=== PATIENT | male | born 1985 | race Two or more races ===

== ENCOUNTER 2019-09-23 21:01 | Inpatient (IN) | payer OTHER ==
[2019-09-23 21:10] VITALS: BMI 33.5
[2019-09-23 21:43] LABS: ALBUMIN 4.5 g/dl (3.4-5.0); AMYLASE 44 U/L (25-115); ANION GAP 11 MMOL/L (8-16); CALCIUM 8.4 mg/dl (8.5-10); CHLORIDE 95 mmol/L (98-107); CO2 19 mmol/L (21-32); CREATININE 0.5 mg/dl (0.55-1.3); GLUCOSE,RANDOM 298 mg/dl (74-106); POTASSIUM 3.7 mmol/L (3.5-5.1); SODIUM 125 mmol/L (136-145); TOT PROT 5.5 g/dl (6.4-8.2)
[2019-09-23 21:46] LABS: HEMATOCRIT 37.7 % (35.4-49); MCH 30.7 pg (25.7-33.7); MCHC 34.6 g/dl (32.0-35.9); MEAN CELL VOLUME 88.6 fl (80-96)
[2019-09-23 21:57] LABS: ALK PHOS 121 U/L (45-117)
[2019-09-23 22:01] LABS: RBC 4.84 M/mm3 (4.00-5.60)
[2019-09-23 22:02] LABS: PLATELET COUNT 268 K/MM3 (134-434)
[2019-09-23 22:06] LABS: WHITE BLOOD COUNT 15.3 K/mm3 (4.0-10.8)
[2019-09-23 22:29] LABS: LIPASE 200 U/L (73-393); PLATELET ESTIMATE ADEQUATE
[2019-09-23] MEDS ORDERED: ACETAMINOPHEN INJECTION 100 ML IVPB ONE (23:37)
--- NOTE | 2019-09-23 23:43 | PDOC ---
History of Present Illness - General Chief Complaint: Pain, Acute Stated Complaint: ABD PAIN RADIATING TO BACK Time Seen by Provider: 09/23/19 21:10 - History of Present Illness Initial Comments: This 33-year-old man with no previous medical history presents with a 1 day history of epigastric pain radiating to his back. Patient had mild pain when he awakened this morning, pain worsened despite taking [id number] meds (Im odium and antacid). He attempted to eat chicken soup but became nauseated. He did not vomit and had no further nausea. No previous history of this type of pain; patient denies peptic ulcer disease, gastritis, biliary tract abnormalities or pancreatic issues. He denies constipation/diarrhea/fever or chills. He states that he can drink 2 to 3 cans of beer per night but not every night. He last drank a large quantity of beer 5 days ago when he had attended a [employer]. On no daily medications No allergies Smoked for 2 years but quit 3 months ago; alcohol history as noted above, no history of other recreational drug use Patient works in [employer] business Past History - Medical History Allergies/Adverse Reactions: Allergies Allergy/AdvReac Type Severity Reaction Status Date / Time No Known Allergies Allergy Unverified 09/23/19 21:04 Home Medications: Ambulatory Orders NK [No Known Home Medication] 09/23/19 COPD: No - Psycho-Social/Smoking History Smoking History: Never smoked Review of Systems - Review of Systems Able to Perform ROS?: Yes Comments:: 12 point review of systems is negative except for what is noted in the history of present illness *Physical Exam - Vital Signs Last Vital Signs Temp Pulse Resp BP Pulse Ox 100.4 F H 118 H 18 141/82 97 09/23/19 21:06 09/23/19 21:06 09/23/19 21:06 09/23/19 21:06 09/23/19 21:06 - Physical Exam GENERAL: Adult male, alert and oriented x3, in mild distress secondary to epigastric pain HEAD: Normal with no signs of trauma. EYES: PERRLA, EOMI, sclera anicteric, conjunctiva erythematous. ENT: Ears normal, nares patent, oropharynx clear without exudates. Dry mucous membranes. NECK: Normal range of motion, supple without lymphadenopathy, JVD, or masses. LUNGS: Breath sounds equal, clear to auscultation bilaterally. No wheezes, and no crackles. HEART:Regular rate and rhythm, normal S1 and S2 without murmur, rub or gallop. ABDOMEN:.normal bowel sounds No guarding,tenderness or rebound.No masses No distention. EXTREMITIES: Normal range of motion, no edema. No clubbing or cyanosis. No erythema, or tenderness. NEUROLOGICAL: Cranial nerves II through XII grossly intact. Normal speech. No focal neurological deficits. MUSCULOSKELETAL: Back non-tender to palpation, no CVA tenderness SKIN: Warm, Dry, normal turgor, no rashes or lesions noted. ED Treatment Course - LABORATORY CBC & Chemistry Diagram: 09/23/19 21:15 09/23/19 23:40 - ADDITIONAL ORDERS Additional order review: Laboratory Results 09/23/19 09/23/19 09/23/19 22:40 21:15 21:15 Sodium 125 L Potassium 3.7 Chloride 95 L Carbon Dioxide 19 L Anion Gap 11 BUN 12.0 Creatinine 0.5 L Est GFR (CKD-EPI)AfAm 163.87 Est GFR (CKD-EPI)NonAf 141.39 Random Glucose 298 H Lactic Acid 2.5 H* Calcium 8.4 L Total Bilirubin No Result Required. AST No Result Required. ALT No Result Required. Alkaline Phosphatase 121 H Total Protein 5.5 L Albumin 4.5 Total Amylase 44 Lipase 200 Urine Color Yellow Urine Appearance Clear Urine pH 5.5 Urine Protein 2+ H Urine Glucose (UA) 2+ Urine Ketones 4+ H Urine Blood Trace-lysed Urine Nitrite Negative Urine Bilirubin Negative Urine Urobilinogen 0.2 Ur Leukocyte Esterase Negative Urine RBC 2-5 Urine WBC 0-2 Urine Bacteria Few 09/23/19 21:15 RBC 4.84 MCV 88.6 MCHC 34.6 RDW 12.0 MPV 8.0 Neutrophils % No Result Required. Lymphocytes % No Result Required. - RADIOLOGY Radiology Studies Ordered: Category Date Time Status ABDOMEN & PELVIS CT W/O CONTR [CT] Stat CT Scan 09/23/19 21:11 Completed CHEST X-RAY PORTABLE* [RAD] Stat Radiology 09/23/19 22:23 Taken ED Progress Note - Progress Note Progress Note: This otherwise healthy 33-year-old man with a history of moderate ethanol intake but no significant past medical history presents with epigastric pain radiating to the back for 1 day and mild intermittent nausea. No other associated symptoms. Exam as noted above. Because of the patient's history of alcohol use and pain pattern, acute pancrea titis versus acute gastritis/peptic ulcer disease is main differential diagnosis. CBC/chemistry profile/lipase sent and IV fluids started (2 L normal saline administered over the first 90 minutes of patient's ER stay) Noncontrast CT of the abdomen/pelvis obtained: Interpretation by Dr. Whiteside of the radiology staffmild inflammatory changes about a slightly edematous head of the pancreas consistent with mild acute pancreatitis. No peripancreatic fluid collections suspicious for pseudocyst or abscess are identified. There is also hepatomegaly and diffuse fatty infiltration of the liver noted. Laboratory evaluation notable for white blood cell count of 15,300; sodium was 125 (corrected to 129), carbon dioxide 19 with anion gap of 11 BUN was 12 with creatinine of 0.5 random glucose was 298. Lipase was 200. Lactic acid mildly elevated at 2.5 INR could not be performed in our lab because of lipemic serum; specimen was sent to [facility] lab but could not also not be completed because of apparent high serum lipids. Patient denies previous known hyperlipidemia. Temperature on presentation was 100.4 F (orally); repeat reading at 11:30 PM: 102.6 F. Acetaminophen 1 g IV given Patient received another liter of normal saline IV and repeat lactic acid/basic chemistry was drawn at 11:40 PM Patient was asked if either he or family member diagnosed as a diabetic: He was told that he had "slightly" elevated glucose levels in the past but has not been told he is diabetic. No family history of diabetes Twelve-lead electrocardiogram performed: Normal sinus rhythm at 85 bpm; there is sinus arrhythmia but no other cardiac arrhythmia. No acute ST or T wave abnormality seen . Portable chest x-ray performed: Preliminary interpretationborderline cardiomegaly. No infiltrates, effusions, masses 09/24/19 01:39 Repeat lactic acid 1.5 Repeat basic chemistry reveals elevation of sodium to 133; potassium 3.9, carbon dioxide 25. Glucose also has increased to 345 Laboratory made comment that serum is markedly lipemic and results may be unreliable Medical Decision Making - Medical Decision Making Case discussed with VICENTE Cruz of [facility] service. The patient will be admitted to Dr. Garcia's service, at [facility] (there is no gastroenterology coverage at [facility] on weekends) Alcohol level added: Less than 3 mg/dl Covid-19 testing performed 09/24/19 04:02 POC fingerstick glucose at 3:21 was 204 09/24/19 04:11 Patient transported by ambulance without complaints and in stable condition to [facility]. Discharge - Discharge Information Problems reviewed: Yes Clinical Impression/Diagnosis: Acute pancreatitis Qualifiers: Pancreatitis type: other Acute pancreatitis complication: no infection or necrosis Qualified Code(s): K85.80 - Other acute pancreatitis without necrosis or infection Condition: Guarded - Admission Yes - Follow up/Referral - Patient Discharge Instructions - Post Discharge Activity
[2019-09-23] MEDS ORDERED: ACETAMINOPHEN 1000 MG/100 ML VIAL (NON FORMULARY) IVPB ONE (23:44)
[2019-09-24 00:52] LABS: CREATININE 0.8 mg/dL (0.55-1.3); POTASSIUM 3.9 mmol/L (3.5-5.1)
[2019-09-24] MEDS ORDERED: INSULIN REGULAR HUMAN 100 UNITS/ML *VIAL IVPUSH ONE (02:11)
[2019-09-24] MEDS ORDERED: INSULIN REGULAR HUMAN 100 UNITS/ML *VIAL ONE (02:16)
--- NOTE | 2019-09-24 04:36 | HP ---
CHIEF COMPLAINT: Epigastric Pain, Vomiting PCP: HISTORY OF PRESENT ILLNESS: This is a 33 y/o male with no PMHx. Who presents to the ED with epigastric pain radiating to his lumbar region with NBNB emesis x 1 day. Patient reports mild pain earlier in the morning in which he took Immodium and Antacids without r elief. Patient reports not being able to tolerate anything PO. Patient denies similar episodes in the past. Patient reports drinking 2-3 beers moderately during the week. He reports drinking "a large amount of beer" 5 days ago at a family [employer]. Patient denies fever, chills, cough, SOB, dizziness, CACERES, CP, palpitations, diarrhea, constipation, hematochezia, melena, hematuria, dysuria. Patient denies sick contacts or recent travel. ER course was notable for: (1) CTAP- mild pancreatitis. No peripancreatic fluid collections suspicious for pseudocyst or abscess (2) Sepsis Criteria Met- T 102.6, P 118, WBC 15.3, Lactic Acid 2.1 (3) Recent Travel: None PAST MEDICAL HISTORY: None PAST SURGICAL HISTORY: None Social History: Smoking: Former, quit 3 months ago Alcohol: Beer 2-3 night/week, last drink 5 days ago Drugs: Denies Lives with his Brother and Sister in Law, employed as a Veterinarian Allergies No Known Allergies Allergy (Unverified 09/23/19 21:04) HOME MEDICATIONS: Home Medications Medication Instructions Recorded NK [No Known Home Medication] 09/23/19 REVIEW OF SYSTEMS CONSTITUTIONAL: loss of appetite Absent: fever, chills, diaphoresis, generalized weakness, malaise, weight change HEENT: Absent: rhinorrhea, nasal congestion, throat pain, throat swelling, difficulty swallowing, mouth swelling, ear pain, eye pain, visual changes CARDIOVASCULAR: Absent: chest pain, syncope, palpitations, irregular heart rate, lightheadedness, peripheral edema RESPIRATORY: Absent: cough, shortness of breath, dyspnea with exertion, orthopnea, wheezing, stridor, hemoptysis GASTROINTESTINAL: abdominal pain, nausea, vomiting Absent: abdominal distension, diarrhea, constipation, melena, hematochezia GENITOURINARY: Absent: dysuria, frequency, urgency, hesitancy, hematuria, flank pain, genital pain MUSCULOSKELETAL: Absent: myalgia, arthralgia, joint swelling, back pain, neck pain SKIN: Absent: rash, itching, pallor HEMATOLOGIC/IMMUNOLOGIC: Absent: easy bleeding, easy bruising, lymphadenopathy, frequent infections ENDOCRINE: Absent: unexplained weight gain, unexplained weight loss, heat intolerance, cold intolerance NEUROLOGIC: Absent: headache, focal weakness or paresthesias, dizziness, unsteady gait, seizure, mental status changes, bladder or bowel incontinence PSYCHIATRIC: Absent: anxiety, depression, suicidal or homicidal ideation, hallucinations. PHYSICAL EXAMINATION Vital Signs - 24 hr 09/23/19 09/23/19 09/24/19 21:06 23:30 02:20 Temperature 100.4 F H 102.6 F H 99.3 F Pulse Rate 118 H Pulse Rate [ 87 Radial] Respiratory 18 16 Rate Blood Pressure 141/82 Blood Pressure 137/87 [Arm] O2 Sat by Pulse 97 98 Oximetry (%) GENERAL: Awake, alert, and fully oriented, in mild abdominal distress. HEAD: Normal with no signs of trauma. EYES: Pupils equal, round and reactive to light, extraocular movements intact, sclera anicteric, conjunctiva clear. No lid lag. EARS, NOSE, THROAT: Ears normal, nares patent, oropharynx clear without exudates . Dry mucous membranes. NECK: Normal range of motion, supple without lymphadenopathy, JVD, or masses. LUNGS: Breath sounds equal, clear to auscultation bilaterally. No wheezes, and no crackles. No accessory muscle use. HEART: Regular rate and rhythm, normal S1 and S2 without murmur, rub or gallop. ABDOMEN: Epigastric tenderness, hypoactive bowel sounds. Soft, not distended, no guarding, no rebound, no masses. No hepatomegaly or splenomegaly. MUSCULOSKELETAL: Normal range of motion at all joints. No bony deformities or tenderness. No CVA tenderness. UPPER EXTREMITIES: 2+ pulses, warm, well-perfused. No cyanosis. No clubbing. No peripheral edema. LOWER EXTREMITIES: 2+ pulses, warm, well-perfused. No calf tenderness. No peripheral edema. NEUROLOGICAL: Cranial nerves II-XII intact. Normal speech. Gait not observed. PSYCHIATRIC: Cooperative. Good eye contact. Appropriate mood and affect. SKIN: Warm, dry, normal turgor, no rashes or lesions noted, normal capillary refill. Laboratory Results - last 24 hr 09/23/19 09/23/19 09/23/19 21:15 21:15 21:15 WBC 15.3 H RBC 4.84 Hgb 13.0 Hct 37.7 MCV 88.6 MCH 30.7 MCHC 34.6 RDW 12.0 Plt Count 268 MPV 8.0 Absolute Neuts (auto) 2.8 Neutrophils % No Result Required. Neutrophils % (Manual) 76.0 Lymphocytes % No Result Required. Lymphocytes % (Manual) 20.0 Monocytes % (Manual) 2 L Eosinophils % (Manual) 2.0 Platelet Estimate Adequate Sodium 125 L Potassium 3.7 Chloride 95 L Carbon Dioxide 19 L Anion Gap 11 BUN 12.0 Creatinine 0.5 L Est GFR (CKD-EPI)AfAm 163.87 Est GFR (CKD-EPI)NonAf 141.39 POC Glucometer Random Glucose 298 H Lactic Acid 2.5 H* Calcium 8.4 L Total Bilirubin No Result Required. AST No Result Required. ALT No Result Required. Alkaline Phosphatase 121 H Total Protein 5.5 L Albumin 4.5 Total Amylase 44 Lipase 200 Urine Color Urine Appearance Urine pH Urine Protein Urine Glucose (UA) Urine Ketones Urine Blood Urine Nitrite Urine Bilirubin Urine Urobilinogen Ur Leukocyte Esterase Urine RBC Urine WBC Urine Bacteria Alcohol, Quantitative 09/23/19 09/23/19 09/23/19 22:40 23:40 23:40 WBC RBC Hgb Hct MCV MCH MCHC RDW Plt Count MPV Absolute Neuts (auto) Neutrophils % Neutrophils % (Manual) Lymphocytes % Lymphocytes % (Manual) Monocytes % (Manual) Eosinophils % (Manual) Platelet Estimate Sodium 133 L Potassium 3.9 Chloride 100 Carbon Dioxide 25 Anion Gap 8 BUN 9.0 Creatinine 0.8 Est GFR (CKD-EPI)AfAm 135.08 Est GFR (CKD-EPI)NonAf 116.55 POC Glucometer Random Glucose 345 H Lactic Acid 1.5 Calcium Total Bilirubin AST ALT Alkaline Phosphatase Total Protein Albumin Total Amylase Lipase Urine Color Yellow Urine Appearance Clear Urine pH 5.5 Urine Protein 2+ H Urine Glucose (UA) 2+ Urine Ketones 4+ H Urine Blood Trace-lysed Urine Nitrite Negative Urine Bilirubin Negative Urine Urobilinogen 0.2 Ur Leukocyte Esterase Negative Urine RBC 2-5 Urine WBC 0-2 Urine Bacteria Few Alcohol, Quantitative 09/24/19 09/24/19 00:00 03:21 WBC RBC Hgb Hct MCV MCH MCHC RDW Plt Count MPV Absolute Neuts (auto) Neutrophils % Neutrophils % (Manual) Lymphocytes % Lymphocytes % (Manual) Monocytes % (Manual) Eosinophils % (Manual) Platelet Estimate Sodium Potassium Chloride Carbon Dioxide Anion Gap BUN Creatinine Est GFR (CKD-EPI)AfAm Est GFR (CKD-EPI)NonAf POC Glucometer 204 Random Glucose Lactic Acid Calcium Total Bilirubin AST ALT Alkaline Phosphatase Total Protein Albumin Total Amylase Lipase Urine Color Urine Appearance Urine pH Urine Protein Urine Glucose (UA) Urine Ketones Urine Blood Urine Nitrite Urine Bilirubin Urine Urobilinogen Ur Leukocyte Esterase Urine RBC Urine WBC Urine Bacteria Alcohol, Quantitative < 3 ASSESSMENT/PLAN: This is a 33 y/o male with no PMHx. Admitted for Acute Pancreatitis, Sepsis for further evaluation of their emergent condition. Plan: See Problem List FEN LR@150ml/hr Replete lytes prn NPO DVT ppx OOB SCDs Dispo: Requires Inpatient Care Family Medical History Family History: Unremarkable Problem List - Problem (1) Sepsis Assessment/Plan: Likely secondary to Acute Pancreatitis Sepsis Criteria Met: T 102.6, P 118, Lactic Acid 2.1, WBC 15.3 Blood Cultures-pending Urine Culture-pending Repeat Lactic Acid~ 1.5, post fluid resuscitation Will treat empirically with Ceftriaxone, Levofloxacin Continue IVF Appreciate GI consult Appreciate ID consult Monitor CBC, CMP Maintain MAP >65 Monitor vitals Code(s): A41.9 - SEPSIS, UNSPECIFIED ORGANISM (2) Acute pancreatitis Assessment/Plan: CTAP image, report- mild inflammatory changes about slightly edematous head of the pancreas consistent with mild acute pancreatitis. No peripancreatic fluid collections suspicious for pseudocyst or abscess are identified. There is hepatomegaly and diffuse fatty infiltration of the liver Appreciate GI Consult Continue IVF NPO Offirmev prn Continue Ceftriaxone, Levofloxacin empirically Monitor CBC, CMP Monitor vitals Alcohol Cessation discussed Code(s): K85.90 - ACUTE PANCREATITIS WITHOUT NECROSIS OR INFECTION, UNSP Qualifiers: Pancreatitis type: other Acute pancreatitis complication: no infection or necrosis Qualified Code(s): K85.80 - Other acute pancreatitis without necrosis or infection (3) Suspected 2019-nCoV infection Assessment/Plan: SMART-QUALITY AUDITOR 0, low risk COVID PCR-pending Isolation Precautions Chest Xray image reviewed no infiltrate no effusion Monitor CBC, CMP, Mg, LDH, dDimer, Ferritin Code(s): Z20.828 - CONTACT W AND EXPOSURE TO OTH VIRAL COMMUNICABLE DISEASES Visit type - Emergency Visit Emergency Visit: Yes ED Registration Date: 09/23/19 Care time: The patient presented to the Emergency Department on the above date and was hospitalized for further evaluation of their emergent condition. - New Patient This patient is new to me today: Yes Date on this admission: 09/24/19 - Critical Care Critical Care patient: No
[2019-09-24] MEDS ORDERED: ACETAMINOPHEN 1000 MG/100 ML VIAL (NON FORMULARY) IVPB PRN (05:30)
[2019-09-24 08:12] LABS: BASO % 0.2 % (0-2.0); EOS % 0.3 % (0-4.5); HEMOGLOBIN 14.8 GM/dL (11.7-16.9); LYMPH % 14.9 % (8-40); MCH 33.8 pg (25.7-33.7); MCHC 38.5 g/dl (32.0-35.9); MEAN CELL VOLUME 87.6 fl (80-96); MEAN PLT VOLUME 8.8 fl (7.5-11.1); MONO % 6.5 % (3.8-10.2); NEUT % 78.1 % (42.8-82.8); PLATELET COUNT 200 K/MM3 (134-434); RBC 4.39 M/mm3 (4.00-5.60); RDW 13.5 % (11.9-15.9); WHITE BLOOD COUNT 14.1 K/mm3 (4.0-10.0)
[2019-09-24 08:43] LABS: ANION GAP 12 MMOL/L (8-16); BILIRUBIN,TOTAL 1.6 mg/dL (0.2-1); CHLORIDE 104 mmol/L (98-107); CO2 19 mmol/L (21-32); CREATININE 0.4 mg/dL (0.55-1.3); GLUCOSE,RANDOM 266 mg/dL (74-106); POTASSIUM 3.5 mmol/L (3.5-5.1); SODIUM 135 mmol/L (136-145)
[2019-09-24 08:50] LABS: ALK PHOS 98 U/L (45-117); BLOOD UREA NITROGEN 5.7 mg/dL (7-18); TOT PROT 6.4 g/dl (6.4-8.2)
[2019-09-24 09:35] LABS: HEMATOCRIT 38.5 % (35.4-49)
--- NOTE | 2019-09-24 10:27 | CON.GI ---
Consult Consult Specialty:: GI Referred by:: Hospitalist [facility] Reason for Consultation:: Pancreatitis - History of Present Illness Chief Complaint: Abdominal pain History of Present Illness: 33 y.o. M with 1 day of abdominal pain, epigastric. No prior episodes. Does not feel like eating, Alcohol intake usually moderate, recently excessive about 5 days prior to admission. No known history of diabetes but was told in past his sugar is slightly high. Found to have severely lipemic serum on admission, blood glucose 298, CT scan showed mild peripancreatic changes. Amylase, lipase nl. - History Source History Provided By: Patient, Medical Record Limitations to Obtaining History: No Limitations - Smoking History Smoking history: Former smoker Have you smoked in the past 12 months: Yes If you are a former smoker, when did you quit?: three months ago Home Medications - Allergies Allergies/Adverse Reactions: Allergies Allergy/AdvReac Type Severity Reaction Status Date / Time No Known Allergies Allergy Unverified 09/23/19 21:04 - Home Medications Home Medications: Ambulatory Orders NK [No Known Home Medication] 09/23/19 Physical Exam-GI Vital Signs: Vital Signs Temperature 97.8 F 09/24/19 09:54 Pulse Rate 84 09/24/19 09:54 Respiratory Rate 20 09/24/19 09:54 Blood Pressure 130/80 09/24/19 09:54 O2 Sat by Pulse Oximetry (%) 97 09/24/19 09:54 Constitutional: Yes: Obese HENT: Yes: WNL Neck: Yes: WNL Cardiovascular: Yes: WNL Respiratory: Yes: WNL Gastrointestinal Inspection: Yes: WNL ...Auscultate: Yes: Hypoactive Bowel Sounds ...Palpate: Yes: Soft Labs: CBC, BMP 09/24/19 07:05 09/24/19 07:05 Imaging - Results Cat Scan: Report Reviewed, Image Reviewed Problem List - Problems (1) Hyperlipidemia associated with type 2 diabetes mellitus Code(s): E11.69 - TYPE 2 DIABETES MELLITUS WITH OTHER SPECIFIED COMPLICATION; E78.5 - HYPERLIPIDEMIA, UNSPECIFIED (2) Acute pancreatitis Code(s): K85.90 - ACUTE PANCREATITIS WITHOUT NECROSIS OR INFECTION, UNSP Qualifiers: Pancreatitis type: other Acute pancreatitis complication: no infection or necrosis Qualified Code(s): K85.80 - Other acute pancreatitis without necrosis or infection (3) Suspected 2019-nCoV infection Code(s): Z20.828 - CONTACT W AND EXPOSURE TO H VIRAL COMMUNICABLE DISEASES Assessment/Plan Pancreatitis can be diagnosed when 2 of 3 criteria are met: 1) compatible pain 2) compatible imaging 3) significantly elevated pancreatic enzymes He has #1 and #2 and I suspect his pancreatitis is resolving. The cause in his case is likely severe hypertriglyceridemia, given the fact that the serum was reported as very lipemic. I ordered a triglyceride level now. He will need to adhere to a proper diabetic diet and regimen on discharge and avoid alcohol. He can be fed as soon as he feels up to it.
[2019-09-24 10:33] LABS: CALCIUM 6.5 mg/dL (8.5-10.1)
[2019-09-24 11:42] LABS: TRIGLYCERIDES 2559 mg/dL (0-150)
[2019-09-24] MEDS ORDERED: CALCIUM GLUCONATE 10% - 1,000 MG/10 ML VIAL IVPB ONE (11:53)
[2019-09-24] MEDS ORDERED: PT OWN MED DRAWER 7, Y5N ONE (12:47)
[2019-09-24] MEDS: LACTATED RINGERS SOLUTION 1,000 ML IV SCH ×2 (12:54→21:57)
--- NOTE | 2019-09-24 14:41 | CON.ID ---
Consult - History of Present Illness History of Present Illness: 33 y.o. male with who denies PMH presents with c/o epigastric pain x 1 day. Describes the pain as "squeezing" , 8/10 intensity, and radiates to his back. Pt c/o nausea especially with attempts to eat the night before with subsequent vomiting episode. Denies diarrhea and has no other complaints. In the ER noted to have temp of 100.4F initially which kevan to 102.6F, leukocytosis with wbc of 15.3K and lactic acid of 3.5. In addition, found to have glucose of 345 and triglycerides > 2000 but with normal lipase. He states he has 5 beers daily with a break every [address] abd/pelvis reveals mild pancreatic head edema c/w pancreatitis, without fluid collection. Today had fever of 101F in early a.m. but has been afebrile since. Ate lunch and tolerated it. States abd pain is 3/10 intensity and he is feeling better. 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: Alzheimer's, CVA, Dementia, Migraine, Multiple Sclerosis, Peripheral Neuropathy, Parkinson's, Seizure, Syncope, TIA, Vertigo, Other Cardio/Vascular: No: AFIB, Aneurysm, Aortic Insufficiency, Aortic Stenosis, CAD, CHF, Deep Vein Thrombosis, HTN, Hyperlipdemia, IL, Mitral Insufficiency, Mitral Stenosis, Murmur, Pulmonary Hypertension, Other Pulmonary: No: Asthma, Bronchitis, Cancer, COPD, O2 Dependent, Pneumonia, Previously Intubated, Pulmonary Embolus, Pulmonary Fibrosis, Sleep Apnea, Other Gastrointestinal: No: Ascites, Cancer, Constipation, Crohn's Disease, Diverticulitis, Diverticulosis, Esophageal Varices, Gastritis, GERD, GI Bleed, Hemorrhoids, Hiatal Hernia, Inflamatory Bowel Disease, Irritable Bowel Disease, Pancreatitis, Peptic Ulcer Disease, Ulcerative Colitis, Other Hepatobiliary: No: Cirrhosis, Cholelithiasis, Cholecystitis, Choledocholithiasis, Hepatitis A, Hepatitis B, Hepatitis C, Other Renal/: No: Renal Failure, Renal Inusuff, BPH, Cancer, Hematuria, Hemodialysis, Neurogenic Bladder, Renal Calculi, UTI, Other Heme/Onc: No: Anemia, B12 Deficiency, Bleeding Disorder, Cancer, Current Chemotherapy, Current Radiation Therapy, Hemochromatosis, Hypercoaguable State, Myeloproliferative Synd, Sickle Cell Disease, Sickle Cell Trait, Thrombocytopenia, Other Infectious Disease: No: AIDS, C-Diff, Herpes Zoster, HIV, MRSA, STD's, Tuberculosis, VREF, Other Psych: No: Addictions, Anxiety, Bipolar, Depression, Panic, Psychosis, Schizophrenia, Other Musculoskeletal: No: Bursitis, Chronic low back pain, Hemiparesis, Hemiplegia, Osteoarthritis, Paraplegia, Other Rheumatology: No: Fibromyalgia, Gout, Lupus, Rheumatoid Arthritis, Sarcoidosis, Vasculitis, Other ENT: No: Allergic Rhinitis, Sinusitis, Other Endocrine: Yes: Diabetes Mellitus (? ) - Alcohol/Substance Use Hx Alcohol Use: Yes Number of Drinks Daily: 5 - Smoking History Smoking history: Former smoker Have you smoked in the past 12 months: Yes If you are a former smoker, when did you quit?: three months ago - Social History History of Recent Travel: No Home Medications - Allergies Allergies/Adverse Reactions: Allergies Allergy/AdvReac Type Severity Reaction Status Date / Time No Known Allergies Allergy Unverified 09/23/19 21:04 - Home Medications Home Medications: Ambulatory Orders NK [No Known Home Medication] 09/23/19 Review of Systems - Review of Systems Constitutional: reports: No Symptoms Eyes: reports: No Symptoms HENT: reports: No Symptoms Neck: reports: No Symptoms Cardiovascular: reports: No Symptoms Respiratory: reports: No Symptoms Gastrointestinal: reports: Abdominal Pain (mild epigastric) Genitourinary: reports: No Symptoms Musculoskeletal: reports: No Symptoms Integumentary: reports: No Symptoms Neurological: reports: No Symptoms Endocrine: reports: No Symptoms Hematology/Lymphatic: reports: No Symptoms Psychiatric: reports: No Symptoms Pain Intensity: 3 Physical Exam Vital Signs: Vital Signs Temperature 97.8 F 09/24/19 09:54 Pulse Rate 84 09/24/19 09:54 Respiratory Rate 20 09/24/19 09:54 Blood Pressure 130/80 09/24/19 09:54 O2 Sat by Pulse Oximetry (%) 97 09/24/19 09:54 Constitutional: Yes: No Distress, Calm Eyes: Yes: Conjunctiva Clear, EOM Intact HENT: Yes: Atraumatic Neck: Yes: Supple Cardiovascular: Yes: Regular Rate and Rhythm Respiratory: Yes: CTA Bilaterally Gastrointestinal: Yes: Normal Bowel Sounds, Soft Renal/: Yes: WNL Musculoskeletal: Yes: WNL Extremities: Yes: WNL Integumentary: Yes: WNL Neurological: Yes: Alert, Oriented Labs: CBC, BMP 09/24/19 07:05 09/24/19 07:05 Laboratory Tests 09/23/19 09/23/19 09/23/19 21:15 21:15 21:15 WBC 15.3 H RBC 4.84 Hgb 13.0 Hct 37.7 MCV 88.6 MCH 30.7 MCHC 34.6 RDW 12.0 Plt Count 268 MPV 8.0 Absolute Neuts (auto) 2.8 Neutrophils % No Result Required. Neutrophils % (Manual) 76.0 Lymphocytes % No Result Required. Lymphocytes % (Manual) 20.0 Monocytes % Monocytes % (Manual) 2 L Eosinophils % Eosinophils % (Manual) 2.0 Basophils % Nucleated RBC % Platelet Estimate Adequate Sodium 125 L Potassium 3.7 Chloride 95 L Carbon Dioxide 19 L Anion Gap 11 BUN 12.0 Creatinine 0.5 L Est GFR (CKD-EPI)AfAm 163.87 Est GFR (CKD-EPI)NonAf 141.39 POC Glucometer Random Glucose 298 H Lactic Acid 2.5 H* Calcium 8.4 L Total Bilirubin No Result Required. AST No Result Required. ALT No Result Required. Alkaline Phosphatase 121 H Total Protein 5.5 L Albumin 4.5 Triglycerides Total Amylase 44 Lipase 200 Urine Color Urine Appearance Urine pH Urine Protein Urine Glucose (UA) Urine Ketones Urine Blood Urine Nitrite Urine Bilirubin Urine Urobilinogen Ur Leukocyte Esterase Urine RBC Urine WBC Urine Bacteria Alcohol, Quantitative 09/23/19 09/23/19 09/23/19 22:40 23:40 23:40 WBC RBC Hgb Hct MCV MCH MCHC RDW Plt Count MPV Absolute Neuts (auto) Neutrophils % Neutrophils % (Manual) Lymphocytes % Lymphocytes % (Manual) Monocytes % Monocytes % (Manual) Eosinophils % Eosinophils % (Manual) Basophils % Nucleated RBC % Platelet Estimate Sodium 133 L Potassium 3.9 Chloride 100 Carbon Dioxide 25 Anion Gap 8 BUN 9.0 Creatinine 0.8 Est GFR (CKD-EPI)AfAm 135.08 Est GFR (CKD-EPI)NonAf 116.55 POC Glucometer Random Glucose 345 H Lactic Acid 1.5 Calcium Total Bilirubin AST ALT Alkaline Phosphatase Total Protein Albumin Triglycerides Total Amylase Lipase Urine Color Yellow Urine Appearance Clear Urine pH 5.5 Urine Protein 2+ H Urine Glucose (UA) 2+ Urine Ketones 4+ H Urine Blood Trace-lysed Urine Nitrite Negative Urine Bilirubin Negative Urine Urobilinogen 0.2 Ur Leukocyte Esterase Negative Urine RBC 2-5 Urine WBC 0-2 Urine Bacteria Few Alcohol, Quantitative 09/24/19 09/24/19 09/24/19 00:00 03:21 06:22 WBC RBC Hgb Hct MCV MCH MCHC RDW Plt Count MPV Absolute Neuts (auto) Neutrophils % Neutrophils % (Manual) Lymphocytes % Lymphocytes % (Manual) Monocytes % Monocytes % (Manual) Eosinophils % Eosinophils % (Manual) Basophils % Nucleated RBC % Platelet Estimate Sodium Potassium Chloride Carbon Dioxide Anion Gap BUN Creatinine Est GFR (CKD-EPI)AfAm Est GFR (CKD-EPI)NonAf POC Glucometer 204 223 Random Glucose Lactic Acid Calcium Total Bilirubin AST ALT Alkaline Phosphatase Total Protein Albumin Triglycerides Total Amylase Lipase Urine Color Urine Appearance Urine pH Urine Protein Urine Glucose (UA) Urine Ketones Urine Blood Urine Nitrite Urine Bilirubin Urine Urobilinogen Ur Leukocyte Esterase Urine RBC Urine WBC Urine Bacteria Alcohol, Quantitative < 3 09/24/19 09/24/19 07:05 07:05 WBC 14.1 H RBC 4.39 Hgb 14.8 Hct 38.5 MCV 87.6 MCH 33.8 H MCHC 38.5 H RDW 13.5 Plt Count 200 MPV 8.8 Absolute Neuts (auto) 11.0 H Neutrophils % 78.1 Neutrophils % (Manual) Lymphocytes % 14.9 Lymphocytes % (Manual) Monocytes % 6.5 Monocytes % (Manual) Eosinophils % 0.3 Eosinophils % (Manual) Basophils % 0.2 Nucleated RBC % 0 Platelet Estimate Sodium 135 L Potassium 3.5 Chloride 104 Carbon Dioxide 19 L Anion Gap 12 BUN 5.7 L Creatinine 0.4 L Est GFR (CKD-EPI)AfAm 179.61 Est GFR (CKD-EPI)NonAf 154.97 POC Glucometer Random Glucose 266 H Lactic Acid Calcium 6.5 L* Total Bilirubin 1.6 H AST Electronic Wirer ALT Alkaline Phosphatase 98 Total Protein 6.4 Albumin 3.0 L Triglycerides 2559 H Total Amylase Lipase Urine Color Urine Appearance Urine pH Urine Protein Urine Glucose (UA) Urine Ketones Urine Blood Urine Nitrite Urine Bilirubin Urine Urobilinogen Ur Leukocyte Esterase Urine RBC Urine WBC Urine Bacteria Alcohol, Quantitative Laboratory Last Values WBC 14.1 K/mm3 (4.0-10.0) H 09/24/19 07:05 RBC 4.39 M/mm3 (4.00-5.60) 09/24/19 07:05 Hgb 14.8 GM/dL (11.7-16.9) 09/24/19 07:05 Hct 38.5 % (35.4-49) 09/24/19 07:05 MCV 87.6 fl (80-96) 09/24/19 07:05 MCH 33.8 pg (25.7-33.7) H 09/24/19 07:05 MCHC 38.5 g/dl (32.0-35.9) H 09/24/19 07:05 RDW 13.5 % (11.9-15.9) 09/24/19 07:05 Plt Count 200 K/MM3 (134-434) 09/24/19 07:05 MPV 8.8 fl (7.5-11.1) 09/24/19 07:05 Absolute Neuts (auto) 11.0 K/mm3 (1.5-8.0) H 09/24/19 07:05 Neutrophils % 78.1 % (42.8-82.8) 09/24/19 07:05 Neutrophils % (Manual) 76.0 % (42.8-82.8) 09/23/19 21:15 Lymphocytes % 14.9 % (8-40) 09/24/19 07:05 Lymphocytes % (Manual) 20.0 % (8-40) 09/23/19 21:15 Monocytes % 6.5 % (3.8-10.2) 09/24/19 07:05 Monocytes % (Manual) 2 % (3.8-10.2) L 09/23/19 21:15 Eosinophils % 0.3 % (0-4.5) 09/24/19 07:05 Eosinophils % (Manual) 2.0 % (0-4.5) 09/23/19 21:15 Basophils % 0.2 % (0-2.0) 09/24/19 07:05 Nucleated RBC % 0 % (0-0) 09/24/19 07:05 Platelet Estimate Adequate 09/23/19 21:15 Sodium 135 mmol/L (136-145) L 09/24/19 07:05 Potassium 3.5 mmol/L (3.5-5.1) 09/24/19 07:05 Chloride 104 mmol/L (98-107) 09/24/19 07:05 Carbon Dioxide 19 mmol/L (21-32) L 09/24/19 07:05 Anion Gap 12 MMOL/L (8-16) 09/24/19 07:05 BUN 5.7 mg/dL (7-18) L 09/24/19 07:05 Creatinine 0.4 mg/dL (0.55-1.3) L 09/24/19 07:05 Est GFR (CKD-EPI)AfAm 179.61 09/24/19 07:05 Est GFR (CKD-EPI)NonAf 154.97 09/24/19 07:05 POC Glucometer 223 UNITS (80-120) 09/24/19 06:22 Random Glucose 266 mg/dL (74-106) H 09/24/19 07:05 Lactic Acid 1.5 mmol/L (0.4-2.0) 09/23/19 23:40 Calcium 6.5 mg/dL (8.5-10.1) L* 09/24/19 07:05 Total Bilirubin 1.6 mg/dL (0.2-1) H 09/24/19 07:05 AST Electronic Wirer 09/24/19 07:05 ALT U/L (13-61) 09/24/19 07:05 Alkaline Phosphatase 98 U/L (45-117) 09/24/19 07:05 Total Protein 6.4 g/dl (6.4-8.2) 09/24/19 07:05 Albumin 3.0 g/dl (3.4-5.0) L 09/24/19 07:05 Triglycerides 2559 mg/dL (0-150) H 09/24/19 07:05 Total Amylase 44 U/L (25-115) 09/23/19 21:15 Lipase 200 U/L (73-393) 09/23/19 21:15 Urine Color Yellow 09/23/19 22:40 Urine Appearance Clear 09/23/19 22:40 Urine pH 5.5 (4.5-8) 09/23/19 22:40 Urine Protein 2+ (NEGATIVE) H 09/23/19 22:40 Urine Glucose (UA) 2+ (NEGATIVE) 09/23/19 22:40 Urine Ketones 4+ (NEGATIVE) H 09/23/19 22:40 Urine Blood Trace-lysed (NEGATIVE) 09/23/19 22:40 Urine Nitrite Negative (NEGATIVE) 09/23/19 22:40 Urine Bilirubin Negative (NEGATIVE) 09/23/19 22:40 Urine Urobilinogen 0.2 (0.2-1.0) 09/23/19 22:40 Ur Leukocyte Esterase Negative (NEGATIVE) 09/23/19 22:40 Urine RBC 2-5 /hpf (0-4) 09/23/19 22:40 Urine WBC 0-2 (NEGATIVE) 09/23/19 22:40 Urine Bacteria Few /hpf (NEGATIVE) 09/23/19 22:40 Alcohol, Quantitative < 3 mg/dL (0.0-5.0) 09/24/19 00:00 Imaging - Results Chest X-ray: Report Reviewed Cat Scan: Report Reviewed Problem List - Problems (1) Acute pancreatitis Code(s): K85.90 - ACUTE PANCREATITIS WITHOUT NECROSIS OR INFECTION, UNSP Qualifiers: Pancreatitis type: other Acute pancreatitis complication: no infection or necrosis Qualified Code(s): K85.80 - Other acute pancreatitis without necrosis or infection (2) Hyperlipidemia associated with type 2 diabetes mellitus Code(s): E11.69 - TYPE 2 DIABETES MELLITUS WITH OTHER SPECIFIED COMPLICATION; E78.5 - HYPERLIPIDEMIA, UNSPECIFIED (3) Sepsis Code(s): A41.9 - SEPSIS, UNSPECIFIED ORGANISM Assessment/Plan -- Will hold further antibiotics for now and monitor closely -- CT without evidence of necrosis or fluid collection/ no acute cholecystitis -- trend temps/wbc -- advance diet as tolerated -- pain control as needed -- needs glycemic/ control of HLD -- alcohol abstinence -- pt afebrile, wbc trending down, feels better Will follow Thank you
[2019-09-24] MEDS: INSULIN SLIDING SCALE (NOVOLOG) 1 VIAL SQ SCH ×2 (17:01→21:58)
[2019-09-24 18:08] LABS: ALBUMIN 3.2 g/dl (3.4-5.0); ALK PHOS 107 U/L (45-117); ANION GAP 11 MMOL/L (8-16); BILIRUBIN,TOTAL 1.2 mg/dL (0.2-1); CALCIUM 8.2 mg/dL (8.5-10.1); CHLORIDE 100 mmol/L (98-107); CO2 24 mmol/L (21-32); CREATININE 0.8 mg/dL (0.55-1.3); GLUCOSE,RANDOM 264 mg/dL (74-106); SODIUM 135 mmol/L (136-145)
[2019-09-24 18:32] LABS: BLOOD UREA NITROGEN 7.5 mg/dL (7-18); TOT PROT 6.8 g/dl (6.4-8.2)
[2019-09-24] MEDS ORDERED: INSULIN (NOVOLOG) ASPART 100 UNITS/ML 10ML VIAL ONE (21:13)
[2019-09-25] MEDS: INSULIN SLIDING SCALE (NOVOLOG) 1 VIAL SQ SCH ×4 (06:20→22:24)
[2019-09-25] MEDS: LACTATED RINGERS SOLUTION 1,000 ML IV SCH ×3 (06:20→16:31)
[2019-09-25 08:21] LABS: BASO % 0.6 % (0-2.0); EOS % 1.6 % (0-4.5); HEMATOCRIT 39.8 % (35.4-49); HEMOGLOBIN 13.9 GM/dL (11.7-16.9); LYMPH % 25.5 % (8-40); MCH 30.2 pg (25.7-33.7); MCHC 34.8 g/dl (32.0-35.9); MEAN CELL VOLUME 86.7 fl (80-96); MEAN PLT VOLUME 8.1 fl (7.5-11.1); MONO % 4.4 % (3.8-10.2); NEUT % 67.9 % (42.8-82.8); PLATELET COUNT 186 K/MM3 (134-434); RBC 4.59 M/mm3 (4.00-5.60); RDW 13.5 % (11.9-15.9); WHITE BLOOD COUNT 8.1 K/mm3 (4.0-10.0)
[2019-09-25 08:58] LABS: BLOOD UREA NITROGEN 9.5 mg/dL (7-18); CALCIUM 8.2 mg/dL (8.5-10.1); CREATININE 0.5 mg/dL (0.55-1.3); POTASSIUM 3.4 mmol/L (3.5-5.1); TOT PROT 6.4 g/dl (6.4-8.2)
[2019-09-25 09:03] LABS: BILIRUBIN,TOTAL 1.1 mg/dL (0.2-1)
--- NOTE | 2019-09-25 09:10 | PN ---
Progress Note (short form) - Note Progress Note: Pt feels much improved. Tolerating diabetic diet. Triglycericides > 2500 yesterday! Pt clearly has severe hypertriglyceridemia as the cause of his pancreatitis. To begin fenofibrate and omega-3 to lower triglycerides; along with control of blood sugar and avoidance of alcohol, this should lower his triglycerides. If the triglycerides do not come down markedly he may have lysosomal acid lipase deficiency which can be evaluated with a blood test for activity of the enzyme after discharge. Fasting trigylcerides ordered for a.m. tomorrow. If triglycerides are still > 1000 I would hesitate to discharge him. Problem List - Problems (1) Hyperlipidemia associated with type 2 diabetes mellitus Code(s): E11.69 - TYPE 2 DIABETES MELLITUS WITH OTHER SPECIFIED COMPLICATION; E78.5 - HYPERLIPIDEMIA, UNSPECIFIED (2) Acute pancreatitis Code(s): K85.90 - ACUTE PANCREATITIS WITHOUT NECROSIS OR INFECTION, UNSP Qualifiers: Pancreatitis type: other Acute pancreatitis complication: no infection or necrosis Qualified Code(s): K85.80 - Other acute pancreatitis without necrosis or infection (3) Suspected 2019-nCoV infection Code(s): Z20.828 - CONTACT W AND EXPOSURE TO [facility] VIRAL COMMUNICABLE DISEASES
[2019-09-25] MEDS ORDERED: POTASSIUM CHLORIDE TABS 20 MEQ TABLET.ER (FP) PO ONE (09:45)
[2019-09-25] MEDS ORDERED: PT OWN MED DRAWER 7, Y5N ONE (09:55)
[2019-09-25] MEDS: OMEGA-3 ACID ETHYL ESTERS (FATTY-ACIDS) 1 GM CAPSULE (FP) PO SCH ×2 (09:57→22:24)
[2019-09-25] MEDS: FENOFIBRIC ACID 135 MG CAP PO SCH (09:58)
--- NOTE | 2019-09-25 15:04 | PN ---
Progress Note, Physician History of Present Illness: Pt states he feels better. No abd pain. Tmax 99.6F, currently afebrile. Tolerating diet. - Current Medication List Current Medications: Active Medications Acetaminophen (Ofirmev Injection -) 1,000 mg IVPB Q6H PRN PRN Reason: FEVER Fenofibric Acid (Trilipix -) 135 mg PO DAILY [facility] Last Admin: 09/25/19 09:58 Dose: 135 mg Documented by: Lactated Ringer's (Lactated Ringers Solution) 1,000 mls @ 150 mls/hr IV ASDIR [facility] Last Admin: 09/25/19 10:06 Dose: 150 mls/hr Documented by: Insulin Aspart (Novolog Vial Sliding Scale -) 1 vial SQ ACHS [facility]; Protocol Last Admin: 09/25/19 11:38 Dose: 4 units Documented by: Xorsn-0-Baud Ethyl Esters (Lovaza -) 2 gm PO BID [facility] Last Admin: 09/25/19 09:57 Dose: 2 gm Documented by: - Objective Vital Signs: Vital Signs Temperature 99.0 F 09/25/19 14:00 Pulse Rate 70 09/25/19 14:00 Respiratory Rate 20 09/25/19 14:00 Blood Pressure 122/74 09/25/19 14:00 O2 Sat by Pulse Oximetry (%) 95 09/25/19 14:00 Constitutional: Yes: No Distress, Calm Cardiovascular: Yes: Regular Rate and Rhythm Respiratory: Yes: Regular Gastrointestinal: Yes: Normal Bowel Sounds, Soft Integumentary: Yes: WNL Neurological: Yes: Alert, Oriented Labs: CBC, BMP 09/25/19 07:37 09/25/19 07:37 Microbiology 09/24/19 11:15 Urine - Urine Clean Catch Urine Culture - Final NO GROWTH OBTAINED 09/24/19 07:00 Blood - Peripheral Venous Blood Culture - Preliminary NO GROWTH OBTAINED AFTER 24 HOURS, INCUBATION TO CONTINUE FOR 4 DAYS. 09/24/19 07:05 Blood - Peripheral Venous Blood Culture - Preliminary NO GROWTH OBTAINED AFTER 24 HOURS, INCUBATION TO CONTINUE FOR 4 DAYS. Problem List - Problems (1) Acute pancreatitis Code(s): K85.90 - ACUTE PANCREATITIS WITHOUT NECROSIS OR INFECTION, UNSP Qualifiers: Pancreatitis type: other Acute pancreatitis complication: no infection or necrosis Qualified Code(s): K85.80 - Other acute pancreatitis without necrosis or infection (2) Hyperlipidemia associated with type 2 diabetes mellitus Code(s): E11.69 - TYPE 2 DIABETES MELLITUS WITH OTHER SPECIFIED COMPLICATION; E78.5 - HYPERLIPIDEMIA, UNSPECIFIED (3) Sepsis Code(s): A41.9 - SEPSIS, UNSPECIFIED ORGANISM Assessment/Plan -- Pt is feeling better, tolerating diet -- continue monitor temps off of antibiotics, wbc trended down to normal -- needs glycemic/ control of HLD, monitor triglycerides -- alcohol abstinence
--- NOTE | 2019-09-25 18:20 | PN ---
Physical Exam: SUBJECTIVE: Patient seen and examined at bedside, admitted for HTG induced pancreatitis, TG trending down, abd pain much improved, on aggressive IVF, counseled on Etoh cessation, also A1c noted >12% will need insulin management. VSS. OBJECTIVE: Vital Signs Period Temp Pulse Resp BP Sys/Cartagena Pulse Ox Last 24 Hr 98.2 F-99.6 F 70-83 20-20 122-160/72-91 94-97 GENERAL: AAox3, NAD HEENT NC/aT, no oral thrush, neck supple, MMM LUNGS: Breath sounds equal, clear to auscultation bilaterally. No wheezes, and no crackles. No accessory muscle use. HEART: Regular rate and rhythm, normal S1 and S2 without murmur, rub or gallop. ABDOMEN: Mild Epigastric tenderness to deep palpation,BS+, Soft, not distended, no guarding, no rebound, no masses. No hepatomegaly or splenomegaly. MUSCULOSKELETAL: Normal range of motion at all joints. No bony deformities or tenderness. No CVA tenderness. UPPER EXTREMITIES: 2+ pulses, warm, well-perfused. No cyanosis. No clubbing. No peripheral edema. LOWER EXTREMITIES: 2+ pulses, warm, well-perfused. No calf tenderness. No peripheral edema. NEUROLOGICAL: Cranial nerves II-XII intact. Normal speech. Gait not observed. PSYCHIATRIC: Cooperative. Good eye contact. Appropriate mood and affect. SKIN: Warm, dry, normal turgor, no rashes or lesions noted, normal capillary refill. No LE ulcers. Laboratory Results - last 24 hr 09/24/19 09/24/19 09/24/19 10:35 15:10 21:54 WBC RBC Hgb Hct MCV MCH MCHC RDW Plt Count MPV Absolute Neuts (auto) Neutrophils % Lymphocytes % Monocytes % Eosinophils % Basophils % Nucleated RBC % Sodium Potassium Chloride Carbon Dioxide Anion Gap BUN 7.5 Creatinine Est GFR (CKD-EPI)AfAm Est GFR (CKD-EPI)NonAf POC Glucometer 213 Random Glucose Hemoglobin A1c % Calcium Total Bilirubin AST No Result Required. ALT No Result Required. Alkaline Phosphatase Total Protein 6.8 Albumin Triglycerides Cholesterol Total LDL Cholesterol HDL Cholesterol Lipase TSH COVID-19 ([facility]) Not detected 09/25/19 09/25/19 09/25/19 06:17 07:37 07:37 WBC 8.1 RBC 4.59 Hgb 13.9 Hct 39.8 MCV 86.7 MCH 30.2 D MCHC 34.8 RDW 13.5 Plt Count 186 MPV 8.1 Absolute Neuts (auto) 5.5 Neutrophils % 67.9 Lymphocytes % 25.5 D Monocytes % 4.4 Eosinophils % 1.6 D Basophils % 0.6 Nucleated RBC % 0 Sodium 137 Potassium 3.4 L Chloride 104 Carbon Dioxide 20 L Anion Gap 13 BUN 9.5 Creatinine 0.5 L Est GFR (CKD-EPI)AfAm 163.87 Est GFR (CKD-EPI)NonAf 141.39 POC Glucometer 200 Random Glucose 208 H Hemoglobin A1c % Calcium 8.2 L Total Bilirubin 1.1 H AST 26 ALT 61 Alkaline Phosphatase 90 Total Protein 6.4 Albumin 3.0 L Triglycerides 1381 H Cholesterol 327 H Total LDL Cholesterol 80 HDL Cholesterol 22 L Lipase 305 TSH 1.25 COVID-19 ([facility]) 09/25/19 09/25/19 09/25/19 08:12 08:12 11:37 WBC RBC Hgb Hct MCV MCH MCHC RDW Plt Count MPV Absolute Neuts (auto) Neutrophils % Lymphocytes % Monocytes % Eosinophils % Basophils % Nucleated RBC % Sodium Potassium Chloride Carbon Dioxide Anion Gap BUN Creatinine Est GFR (CKD-EPI)AfAm Est GFR (CKD-EPI)NonAf POC Glucometer 201 Random Glucose Hemoglobin A1c % 12.7 H Calcium Total Bilirubin AST ALT Alkaline Phosphatase Total Protein Albumin Triglycerides Cancelled Cholesterol Cancelled Total LDL Cholesterol Cancelled HDL Cholesterol Cancelled Lipase Cancelled TSH Cancelled COVID- ([facility]AN) 09/25/19 16:27 WBC RBC Hgb Hct MCV MCH MCHC RDW Plt Count MPV Absolute Neuts (auto) Neutrophils % Lymphocytes % Monocytes % Eosinophils % Basophils % Nucleated RBC % Sodium Potassium Chloride Carbon Dioxide Anion Gap BUN Creatinine Est GFR (CKD-EPI)AfAm Est GFR (CKD-EPI)NonAf POC Glucometer 195 Random Glucose Hemoglobin A1c % Calcium Total Bilirubin AST ALT Alkaline Phosphatase Total Protein Albumin Triglycerides Cholesterol Total LDL Cholesterol HDL Cholesterol Lipase TSH COVID-19 ([facility]) Active Medications Generic Name Dose Route Start Last Admin Trade Name Freq PRN Reason Stop Dose Admin Acetaminophen 1,000 mg 09/24/19 05:30 Ofirmev Injection - IVPB Q6H PRN FEVER Fenofibric Acid 135 mg 09/25/19 10:00 09/25/19 09:58 Trilipix - PO 135 mg DAILY [facility] Administration Lactated Ringer's 1,000 mls @ 150 mls/hr 09/24/19 02:15 09/25/19 16:31 Lactated Ringers Solution IV 150 mls/hr ASDIR [facility] Administration Insulin Aspart 1 vial 09/24/19 16:30 09/25/19 16:29 Novolog Vial Sliding Scale - SQ 2 units ACHS [facility] Administration Protocol Insulin Detemir 7 units 09/25/19 22:00 Levemir Vial SQ BID [facility] [id number] Ethyl Esters 2 gm 09/25/19 10:00 09/25/19 09:57 Lovaza - PO 2 gm BID [facility] Administration ASSESSMENT/PLAN: 33 M HTG induced pancreatitis Etoh dependence T2DM uncontrolled HTN Obesity Plan: Insulin basal and pre-meal for titration of BG <200 send urine YIMI, Renal evaluation for protineuria likely DM nephropathy Will start PAUL Monitor lipid panel, cont. Trilipix/Olivet-3 Counseled extensively on Etoh cessation DVT ppx: Heparin SC Visit type - Emergency Visit Emergency Visit: Yes ED Registration Date: 09/24/19 Care time: The patient presented to the Emergency Department on the above date and was hospitalized for further evaluation of their emergent condition. - New Patient This patient is new to me today: No - Critical Care Critical Care patient: No - Discharge Referral Referred to [facility] No
--- NOTE | 2019-09-25 18:55 | EKG ---
Test Reason : Blood Pressure : / mmHG Vent. Rate : 085 BPM Atrial Rate : 085 BPM P-R Int : 164 ms QRS Dur : 090 ms QT Int : 350 ms P-R-T Axes : 045 043 084 degrees QTc Int : 416 ms NORMAL SINUS RHYTHM WITH SINUS ARRHYTHMIA NONSPECIFIC T WAVE ABNORMALITY ABNORMAL ECG NO PREVIOUS ECGS AVAILABLE Confirmed by MD MICHELE, MUSTAPHA ([id number]) on 09/25/2019 6:55:03 PM Referred By: MD PIMENTEL Confirmed By:MUSTAPHA BAUTISTA MD
[2019-09-25] MEDS: INSULIN (LEVEMIR) 100 UNITS/ML UNITS SQ SCH (22:24)
[2019-09-26] MEDS: INSULIN SLIDING SCALE (NOVOLOG) 1 VIAL SQ SCH ×4 (06:06→21:18)
[2019-09-26] MEDS: LACTATED RINGERS SOLUTION 1,000 ML IV SCH (06:07)
[2019-09-26 08:29] LABS: BASO % 0.8 % (0-2.0); HEMATOCRIT 39.1 % (35.4-49); HEMOGLOBIN 13.5 GM/dL (11.7-16.9); MCH 29.7 pg (25.7-33.7); MCHC 34.5 g/dl (32.0-35.9); MEAN CELL VOLUME 86.2 fl (80-96); MEAN PLT VOLUME 7.7 fl (7.5-11.1); MONO % 7.5 % (3.8-10.2); NEUT % 58.7 % (42.8-82.8); PLATELET COUNT 200 K/MM3 (134-434); RBC 4.54 M/mm3 (4.00-5.60); RDW 13.3 % (11.9-15.9); WHITE BLOOD COUNT 5.5 K/mm3 (4.0-10.0)
[2019-09-26 08:58] LABS: ALBUMIN 2.8 g/dl (3.4-5.0); BILIRUBIN,TOTAL 0.7 mg/dL (0.2-1); CALCIUM 8.7 mg/dL (8.5-10.1); CREATININE 0.5 mg/dL (0.55-1.3); POTASSIUM 3.8 mmol/L (3.5-5.1); TOT PROT 6.2 g/dl (6.4-8.2)
[2019-09-26 08:59] LABS: CHOLESTEROL 325 mg/dL (50-200); HDL CHOLESTEROL 22 mg/dL (40-60); LDL CHOLESTEROL (ONLY SJRH) 104 mg/dL (5-100); TRIGLYCERIDES 862 mg/dL (0-150)
[2019-09-26] MEDS ORDERED: PT OWN MED DRAWER 7, Y5N ONE (10:55)
[2019-09-26] MEDS: FOLIC ACID 1 MG TABLET (FP) PO SCH (10:58)
[2019-09-26] MEDS: INSULIN (LEVEMIR) 100 UNITS/ML UNITS SQ SCH ×2 (10:58→21:15)
[2019-09-26] MEDS: THIAMINE HCL 100 MG TABLET (FP) PO SCH (10:59)
[2019-09-26] MEDS: MULTIVITAMINS (DAILY MVI) TABLET (FP) PO SCH (10:59)
[2019-09-26] MEDS: LISINOPRIL 10 MG TABLET (FP) PO SCH (10:59)
[2019-09-26] MEDS: FENOFIBRIC ACID 135 MG CAP PO SCH (10:59)
[2019-09-26] MEDS: OMEGA-3 ACID ETHYL ESTERS (FATTY-ACIDS) 1 GM CAPSULE (FP) PO SCH ×2 (10:59→21:15)
--- NOTE | 2019-09-26 11:55 | PN.GI ---
GI Progress Note Subjective: Eating lunch No acute events No abdominal pain - Objective Vital Signs: Vital Signs Temperature 98.8 F 09/26/19 06:00 Pulse Rate 58 L 09/26/19 06:00 Respiratory Rate 20 09/26/19 06:00 Blood Pressure 137/76 09/26/19 06:00 O2 Sat by Pulse Oximetry (%) 98 09/26/19 06:00 Constitutional: Calm Eyes: No: Sclera Icterus Cardiovascular: Yes: Regular Rate and Rhythm Respiratory: Yes: CTA Bilaterally Gastrointestinal Inspection: No: Distention ...Auscultate: Yes: Normoactive Bowel Sounds ...Palpate: No: Hepatomegaly, Splenomegaly ...Percussion: No: Tympanitic Edema: No (No LE edema) Labs: CBC, BMP 09/26/19 07:44 09/26/19 07:44 Problem List - Problems (1) Acute pancreatitis Assessment/Plan: Likely from hypertriglyceridemia Fenofibrate started by Dr. Duarte over the weekend. I placed endocrine consult for further management Code(s): K85.90 - ACUTE PANCREATITIS WITHOUT NECROSIS OR INFECTION, UNSP Qualifiers: Pancreatitis type: other Acute pancreatitis complication: no infection or necrosis Qualified Code(s): K85.80 - Other acute pancreatitis without necrosis or infection
[2019-09-26] MEDS ORDERED: INSULIN (LEVEMIR) 100 UNITS/ML UNITS SQ ONE (11:57)
--- NOTE | 2019-09-26 13:35 | PN ---
Progress Note, Physician History of Present Illness: feels better denies any abd pain - Current Medication List Current Medications: Active Medications Acetaminophen (Ofirmev Injection -) 1,000 mg IVPB Q6H PRN PRN Reason: FEVER Fenofibric Acid (Trilipix -) 135 mg PO DAILY [facility] Last Admin: 09/26/19 10:59 Dose: 135 mg Documented by: Folic Acid (Folic Acid -) 1 mg PO DAILY [facility] Last Admin: 09/26/19 10:58 Dose: 1 mg Documented by: Lactated Ringer's (Lactated Ringers Solution) 1,000 mls @ 150 mls/hr IV ASDIR [facility] Last Admin: 09/26/19 06:07 Dose: 150 mls/hr Documented by: Insulin Aspart (Novolog Vial Sliding Scale -) 1 vial SQ ACHS [facility]; Protocol Last Admin: 09/26/19 11:10 Dose: 4 units Documented by: Insulin Detemir (Levemir Vial) 7 units SQ BID [facility] Last Admin: 09/26/19 10:58 Dose: 7 units Documented by: Lisinopril (Prinivil) 10 mg PO DAILY [facility] Last Admin: 09/26/19 10:59 Dose: 10 mg Documented by: Multivitamins/Minerals/Vitamin C (Tab-A-Vit -) 1 tab PO DAILY [facility] Last Admin: 09/26/19 10:59 Dose: 1 tab Documented by: [id number] Ethyl Esters (Lovaza -) 2 gm PO BID [facility] Last Admin: 09/26/19 10:59 Dose: 2 gm Documented by: Thiamine HCl (Vitamin B1 -) 100 mg PO DAILY [facility] Last Admin: 09/26/19 10:59 Dose: 100 mg Documented by: - Objective Vital Signs: Vital Signs Temperature 98.8 F 09/26/19 06:00 Pulse Rate 58 L 09/26/19 06:00 Respiratory Rate 20 09/26/19 06:00 Blood Pressure 137/76 09/26/19 06:00 O2 Sat by Pulse Oximetry (%) 98 09/26/19 06:00 Constitutional: Yes: No Distress, Calm Cardiovascular: Yes: S1, S2 Respiratory: Yes: Regular, CTA Bilaterally Gastrointestinal: Yes: Normal Bowel Sounds, Soft Musculoskeletal: Yes: WNL Extremities: Yes: WNL Neurological: Yes: Alert, Oriented Psychiatric: Yes: Alert, Oriented Labs: CBC, BMP 09/26/19 07:44 09/26/19 07:44 Assessment/Plan james List - Problems (1) Acute pancreatitis Code(s): K85.90 - ACUTE PANCREATITIS WITHOUT NECROSIS OR INFECTION, UNSP Qualifiers: Pancreatitis type: other Acute pancreatitis complication: no infection or necrosis Qualified Code(s): K85.80 - Other acute pancreatitis without necrosis or infection (2) Hyperlipidemia associated with type 2 diabetes mellitus Code(s): E11.69 - TYPE 2 DIABETES MELLITUS WITH OTHER SPECIFIED COMPLICATION; E78.5 - HYPERLIPIDEMIA, UNSPECIFIED (3) Sepsis Code(s): A41.9 - SEPSIS, UNSPECIFIED ORGANISM Assessment/Plan continue current mgmt continue monitoring gi on board rest as per the team
[2019-09-26] MEDS ORDERED: ATORVASTATIN CA 20 MG TABLET (FP) PO ONE (14:45)
--- NOTE | 2019-09-26 14:52 | CONSULT ---
Consult Consult Specialty:: Nephrology Reason for Consultation:: proteinuria - History of Present Illness Chief Complaint: epogastric pain History of Present Illness: Pt is a 33 year old male with pmhx of DM who presents to the ER with epigastric pain. He was found to have pancreatitis. He was admitted for treatment. He says he does drink alot of beer. He was found to have proteinuria and I was called to evaluate him. He denies dysuria or heamturia. He denies fevers or chills. He denies shortness of breath. - History Source History Provided By: Patient - Past Medical History Endocrine: Yes: Diabetes Mellitus (? ) - Alcohol/Substance Use Hx Alcohol Use: Yes Number of Drinks Daily: 5 - Smoking History Smoking history: Former smoker Have you smoked in the past 12 months: Yes If you are a former smoker, when did you quit?: three months ago - Social History History of Recent Travel: No Home Medications - Allergies Allergies/Adverse Reactions: Allergies Allergy/AdvReac Type Severity Reaction Status Date / Time No Known Allergies Allergy Unverified 09/23/19 21:04 - Home Medications Home Medications: Ambulatory Orders NK [No Known Home Medication] 09/23/19 Family Medical History Family History: Denies Review of Systems - Review of Systems Constitutional: reports: Loss of Appetite, Malaise Eyes: reports: No Symptoms HENT: reports: No Symptoms Neck: reports: No Symptoms Cardiovascular: reports: No Symptoms Respiratory: reports: No Symptoms Gastrointestinal: reports: Abdominal Pain Genitourinary: reports: No Symptoms Musculoskeletal: reports: No Symptoms Integumentary: reports: No Symptoms Neurological: reports: No Symptoms Endocrine: reports: No Symptoms Hematology/Lymphatic: reports: No Symptoms Psychiatric: reports: No Symptoms Physical Exam Vital Signs: Vital Signs Temperature 97.8 F 09/26/19 14:10 Pulse Rate 68 09/26/19 14:10 Respiratory Rate 20 09/26/19 14:10 Blood Pressure 138/84 09/26/19 14:10 O2 Sat by Pulse Oximetry (%) 98 09/26/19 14:10 Constitutional: Yes: Calm Eyes: Yes: Conjunctiva Clear HENT: Yes: Atraumatic Neck: Yes: Supple Cardiovascular: Yes: S1, S2 Respiratory: Yes: CTA Bilaterally Gastrointestinal: Yes: Soft Renal/: Yes: WNL Edema: No Neurological: Yes: Oriented Psychiatric: Yes: Oriented Labs: CBC, BMP 09/26/19 07:44 09/26/19 07:44 Imaging - Results Chest X-ray: Report Reviewed Cat Scan: Report Reviewed Problem List - Problems (1) Proteinuria Code(s): R80.9 - PROTEINURIA, UNSPECIFIED (2) Acute pancreatitis Code(s): K85.90 - ACUTE PANCREATITIS WITHOUT NECROSIS OR INFECTION, UNSP Qualifiers: Pancreatitis type: other Acute pancreatitis complication: no infection or necrosis Qualified Code(s): K85.80 - Other acute pancreatitis without necrosis or infection (3) Hyperlipidemia associated with type 2 diabetes mellitus Code(s): E11.69 - TYPE 2 DIABETES MELLITUS WITH OTHER SPECIFIED COMPLICATION; E78.5 - HYPERLIPIDEMIA, UNSPECIFIED Assessment/Plan Current Medications Generic Name Dose Route Start Last Admin Trade Name Freq PRN Reason Stop Dose Admin Acetaminophen 1,000 mg 09/24/19 05:30 Ofirmev Injection - IVPB Q6H PRN FEVER Fenofibric Acid 135 mg 09/25/19 10:00 09/26/19 10:59 Trilipix - PO 135 mg DAILY [facility] Administration Folic Acid 1 mg 09/26/19 10:00 09/26/19 10:58 Folic Acid - PO 1 mg DAILY [facility] Administration Lactated Ringer's 1,000 mls @ 150 mls/hr 09/24/19 02:15 09/26/19 06:07 Lactated Ringers Solution IV 150 mls/hr ASDIR [facility] Administration Insulin Aspart 1 vial 09/24/19 16:30 09/26/19 11:10 Novolog Vial Sliding Scale - SQ 4 units ACHS [facility] Administration Protocol Insulin Detemir 7 units 09/25/19 22:00 09/26/19 10:58 Levemir Vial SQ 7 units BID [facility] Administration Lisinopril 10 mg 09/26/19 10:00 09/26/19 10:59 Prinivil PO 10 mg DAILY [facility] Administration Multivitamins/Minerals/Vitamin C 1 tab 09/26/19 10:00 09/26/19 10:59 Tab-A-Vit - PO 1 tab DAILY [facility] Administration [id number] Ethyl Esters 2 gm 09/25/19 10:00 09/26/19 10:59 Lovaza - PO 2 gm BID [facility] Administration Thiamine HCl 100 mg 09/26/19 10:00 09/26/19 10:59 Vitamin B1 - PO 100 mg DAILY [facility] Administration Impression 1. proteinuria 2. DM 3. pancreatitis 4. hypertlipidemai Plan - repeat ua - check prt to script developer ration - cont arb - DM can explain proteinuria - monitor lytes while on fluids
--- NOTE | 2019-09-26 16:01 | DS ---
Physical Exam: SUBJECTIVE: Patient seen and examined. No acute events overnight. OBJECTIVE: Vital Signs Period Temp Pulse Resp BP Sys/Cartagena Pulse Ox Last 24 Hr 97.8 F-99.2 F 58-80 20-20 132-138/76-84 96-98 PHYSICAL EXAM GENERAL: The patient is awake, alert, and fully oriented, in no acute distress. HEAD: Normal with no signs of trauma. EYES: Sclera anicteric, conjunctiva clear. ENT: Ears normal, nares patent, oropharynx clear without exudates, moist mucous membranes. NECK: Trachea midline, full range of motion, supple. LUNGS: Breath sounds equal, clear to auscultation bilaterally, no wheezes, no crackles, no accessory muscle use. HEART: Regular rate and rhythm, S1, S2 without murmur ABDOMEN: Soft, nontender, nondistended, normoactive bowel sounds, no guarding, no rebound EXTREMITIES: 2+ radial pulses, warm, no aclf tenderness, well-perfused, no edema. NEUROLOGICAL: Normal speech, gait not observed. PSYCH: Normal mood, normal affect. SKIN: Warm, dry, normal turgor LABS Laboratory Results - last 24 hr 09/25/19 09/25/19 09/26/19 16:27 22:21 06:04 WBC RBC Hgb Hct MCV MCH MCHC RDW Plt Count MPV Absolute Neuts (auto) Neutrophils % Lymphocytes % Monocytes % Eosinophils % Basophils % Nucleated RBC % Sodium Potassium Chloride Carbon Dioxide Anion Gap BUN Creatinine Est GFR (CKD-EPI)AfAm Est GFR (CKD-EPI)NonAf POC Glucometer 195 230 196 Random Glucose Calcium Total Bilirubin AST ALT Alkaline Phosphatase Total Protein Albumin Triglycerides Cholesterol Total LDL Cholesterol HDL Cholesterol 09/26/19 09/26/19 09/26/19 07:44 07:44 07:44 WBC 5.5 RBC 4.54 Hgb 13.5 Hct 39.1 MCV 86.2 MCH 29.7 MCHC 34.5 RDW 13.3 Plt Count 200 MPV 7.7 Absolute Neuts (auto) 3.2 Neutrophils % 58.7 Lymphocytes % 30.0 Monocytes % 7.5 Eosinophils % 3.0 D Basophils % 0.8 Nucleated RBC % 0 Sodium 137 Potassium 3.8 Chloride 103 Carbon Dioxide 24 Anion Gap 11 BUN 10.0 Creatinine 0.5 L Est GFR (CKD-EPI)AfAm 163.87 Est GFR (CKD-EPI)NonAf 141.39 POC Glucometer Random Glucose 200 H Calcium 8.7 Total Bilirubin 0.7 AST 35 ALT 57 Alkaline Phosphatase 91 Total Protein 6.2 L Albumin 2.8 L Triglycerides 849 H 862 H Cholesterol 325 H Total LDL Cholesterol 104 H HDL Cholesterol 22 L 09/26/19 11:09 WBC RBC Hgb Hct MCV MCH MCHC RDW Plt Count MPV Absolute Neuts (auto) Neutrophils % Lymphocytes % Monocytes % Eosinophils % Basophils % Nucleated RBC % Sodium Potassium Chloride Carbon Dioxide Anion Gap BUN Creatinine Est GFR (CKD-EPI)AfAm Est GFR (CKD-EPI)NonAf POC Glucometer 247 Random Glucose Calcium Total Bilirubin AST ALT Alkaline Phosphatase Total Protein Albumin Triglycerides Cholesterol Total LDL Cholesterol HDL Cholesterol HOSPITAL COURSE: Date of Admission:09/24/19 Date of Discharge: 09/26/19 Pt is a 33 year old male with no significant PMHx admitted for sepsis likely secondary to acute pancreatitis. CT of abd/pelvis showed mild acute pancreatitis of the head of the pancreas, hepatomegaly and diffuse fatty infiltration of the liver with no peripancreatic fluid collection suspicious for pseudocyst or abscess. CXR showed no acute pathology. Pt was empirically treated with IV ceftriaxone and levofloxacin. Pt was given IVF, placed NPO, offirmev prn. Per GI, pts acute pancreatitis was likely secondary to severe hypertriglyceridemia. Pt was found to be hyperglycemic (200) and endorsed moderate alcohol intake. Pts A1c was noted to be >12% and was started on basal and pre-meal insulin for titration of BG <200. Pt was started on trilipix/omega-3 with improvement of triglyceride levels. Discussed importance of diabetic diet and avoidance of alcohol. Minutes to complete discharge: 25 Discharge Summary Problems reviewed: Yes Reason For Visit: PANCREATITIS Current Active Problems Acute pancreatitis (Acute) Hyperlipidemia associated with type 2 diabetes mellitus (Acute) Proteinuria (Acute) Sepsis (Acute) Suspected 2019-nCoV infection (Acute) Condition: Stable - Instructions Diet, Activity, Other Instructions: You came in for vomiting and abdominal pain. You were found to have Pancreatitis. We treated you with IV fluids and insulin. You were found to have extremely high triglycerides and that is the cause for your pancreatitis. Your drinking also contributed to this. DO NOT DRINK ALCOHOL. We imaged your abdomen and saw that your pancreas was inflamed. We also saw that you have problems with your kidney which have begun to improve but STILL NEEDS follow-up. We have provided you with a Glucometer and test strips. Please check your sugars THREE times a day(before meals). As we discussed because you A1c is over 12%, Oral pills alone will not adequately control your DM. Ideally you need Insulin but you have refused. Please re-discuss this with your PCP. We started you on new medications. Please take them as prescribed. Lisinopril 10mg ONCE a Day-- For your blood pressure Fenofibric Acid 135 mg ONCE a Day- For your elevated Triglycerides(fats) Lovaza ( [place]-3 fatty Acid ) TWICE a Day- For your elevated Triglycerides(fats) Aspirin 81 mg ONCE a day. Folic Acid ONCE a day Thiamine ONCE a day Januvia 100mg ONCE a day Glimepiride 2mg ONCE EVERY 12 Hours Please follow up with your Primary Care Physician within 1 week. Please follow up with your Machine Shop Specialist Dr. Mata, within 1 week to discuss your kidney problems and possible biopsy. Please follow up with your Production Operations Manager, Dr. Collazo, within 1 week. Please bring your blood sugar log to this visit. Referrals: Jim Collazo MD [Staff Physician] - 1 Week Faustino Lofton MD [Staff Physician] - 1 Week Prashant Mata MD [Staff Physician] - 1 Week Disposition: HOME - Home Medications Comprehensive Discharge Medication List: Ambulatory Orders Fenofibric Acid [Trilipix -] 135 mg PO DAILY #30 cap 09/26/19 Folic Acid - 1 mg PO DAILY #30 tablet 09/26/19 Glimepiride 2 mg PO BID #60 tablet 09/26/19 Lisinopril [Prinivil] 10 mg PO DAILY #30 tablet 09/26/19 Miscellaneous Medical Supply [Glucometer Device] 1 each TP ASDIR #1 kit 09/26/19 Miscellaneous Medical Supply [Glucometer Test Strips #100] 1 each TP ASDIR #1 box 09/26/19 Miscellaneous Medical Supply [Outpatient Order] 1 each ASDIR #1 misc 09/26/19 [place]-3 Acid Ethyl Esters [Lovaza -] 2 gm PO BID #60 cap 09/26/19 Sitagliptin Phosphate [Januvia] 100 mg PO DAILY #30 tablet 09/26/19 Thiamine HCl [Vitamin B1 -] 100 mg PO DAILY #30 tablet 09/26/19 This patient is new to me today: Yes Date on this admission: 09/26/19 Emergency Visit: Yes ED Registration Date: 09/24/19 Care time: The patient presented to the Emergency Department on the above date and was hospitalized for further evaluation of their emergent condition. Critical Care patient: No - Discharge Referral Referred to [facility] No ATTENDING PHYSICIAN STATEMENT I saw and evaluated the patient. I reviewed the resident's note and discussed the case with the resident. I agree with the resident's findings and plan as documented. SUBJECTIVE: OBJECTIVE: ASSESSMENT AND PLAN:
--- NOTE | 2019-09-26 18:07 | CONSULT ---
Consult Consult Specialty:: Endocrine Referred by:: Musa BURGOS Reason for Consultation:: DM new onset. pancreatitis - History of Present Illness Chief Complaint: abdominal pain History of Present Illness: 33 y/o male with no PMHx. Who presened with epigastric pain radiating to his lumbar region wihich he took Immodium and Antacids without relief. Patient reports not being able to tolerate anything PO. Patient denies similar episodes in the past. Patient reported he drinks beer frequently,has no family history of dm has wieght loss,and blurred vision,he also had been unable to eat since feeling nauseas,his blood sugars have been elevated. 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: Alzheimer's, CVA, Dementia, Migraine, Multiple Sclerosis, Peripheral Neuropathy, Parkinson's, Seizure, Syncope, TIA, Vertigo, Other Cardio/Vascular: No: AFIB, Aneurysm, Aortic Insufficiency, Aortic Stenosis, CAD, CHF, Deep Vein Thrombosis, HTN, Hyperlipdemia, UT, Mitral Insufficiency, Mitral Stenosis, Murmur, Pulmonary Hypertension, Other Pulmonary: No: Asthma, Bronchitis, Cancer, COPD, O2 Dependent, Pneumonia, Previously Intubated, Pulmonary Embolus, Pulmonary Fibrosis, Sleep Apnea, Other Gastrointestinal: No: Ascites, Cancer, Constipation, Crohn's Disease, Diverticulitis, Diverticulosis, Esophageal Varices, Gastritis, GERD, GI Bleed, Hemorrhoids, Hiatal Hernia, Inflamatory Bowel Disease, Irritable Bowel Disease, Pancreatitis, Peptic Ulcer Disease, Ulcerative Colitis, Other Hepatobiliary: No: Cirrhosis, Cholelithiasis, Cholecystitis, Choledocholithiasis, Hepatitis A, Hepatitis B, Hepatitis C, Other Renal/: No: Renal Failure, Renal Inusuff, BPH, Cancer, Hematuria, Hemodialysis, Neurogenic Bladder, Renal Calculi, UTI, Other Infectious Disease: No: AIDS, C-Diff, Herpes Zoster, HIV, MRSA, STD's, Tuberculosis, VREF, Other Psych: No: Addictions, Anxiety, Bipolar, Depression, Panic, Psychosis, Schizophrenia, Other Musculoskeletal: No: Bursitis, Chronic low back pain, Hemiparesis, Hemiplegia, Osteoarthritis, Paraplegia, Other Rheumatology: No: Fibromyalgia, Gout, Lupus, Rheumatoid Arthritis, Sarcoidosis, Vasculitis, Other ENT: No: Allergic Rhinitis, Sinusitis, Other Endocrine: Yes: Diabetes Mellitus (? ) - Alcohol/Substance Use Hx Alcohol Use: Yes Number of Drinks Daily: 5 - Smoking History Smoking history: Former smoker Have you smoked in the past 12 months: Yes If you are a former smoker, when did you quit?: three months ago - Social History History of Recent Travel: No Home Medications - Allergies Allergies/Adverse Reactions: Allergies Allergy/AdvReac Type Severity Reaction Status Date / Time No Known Allergies Allergy Unverified 09/23/19 21:04 - Home Medications Home Medications: Ambulatory Orders Aspirin [ASA -] 81 mg PO DAILY #30 tab.chew 09/26/19 Fenofibric Acid [Trilipix -] 135 mg PO DAILY #30 cap 09/26/19 Folic Acid - 1 mg PO DAILY #30 tablet 09/26/19 Glimepiride 2 mg PO BID #60 tablet 09/26/19 Lisinopril [Prinivil] 10 mg PO DAILY #30 tablet 09/26/19 Miscellaneous Medical Supply [Glucometer Device] 1 each TP ASDIR #1 kit 09/26/19 Miscellaneous Medical Supply [Glucometer Test Strips #100] 1 each TP ASDIR #1 box 09/26/19 Miscellaneous Medical Supply [Outpatient Order] 1 each ASDIR #1 misc 09/26/19 [place]-3 Acid Ethyl Esters [Lovaza -] 2 gm PO BID #60 cap 09/26/19 Sitagliptin Phosphate [Januvia] 100 mg PO DAILY #30 tablet 09/26/19 Thiamine HCl [Vitamin B1 -] 100 mg PO DAILY #30 tablet 09/26/19 Family Medical History Family History: Denies Review of Systems - Review of Systems Constitutional: reports: Lethargy, Unintentional Wgt. Loss Eyes: reports: Blurred Vision HENT: reports: No Symptoms Neck: reports: No Symptoms Cardiovascular: reports: No Symptoms Respiratory: reports: No Symptoms Gastrointestinal: reports: No Symptoms Genitourinary: reports: No Symptoms Breasts: reports: No Symptoms Reported Musculoskeletal: reports: No Symptoms Neurological: reports: No Symptoms Endocrine: reports: Unexplained Weight Loss Physical Exam Vital Signs: Vital Signs Temperature 97.8 F 09/26/19 14:10 Pulse Rate 68 09/26/19 14:10 Respiratory Rate 20 09/26/19 14:10 Blood Pressure 138/84 09/26/19 14:10 O2 Sat by Pulse Oximetry (%) 98 09/26/19 14:10 Constitutional: Yes: Calm Eyes: Yes: EOM Intact HENT: Yes: Normocephalic Neck: Yes: Trachea Midline Respiratory: Yes: WNL Extremities: Yes: WNL Edema: No Labs: CBC, BMP 09/26/19 07:44 09/26/19 07:44 Problem List - Problems (1) Acute pancreatitis Problems reviewed: Yes Code(s): K85.90 - ACUTE PANCREATITIS WITHOUT NECROSIS OR INFECTION, UNSP Qualifiers: Pancreatitis type: other Acute pancreatitis complication: no infection or necrosis Qualified Code(s): K85.80 - Other acute pancreatitis without necrosis or infection (2) Hyperlipidemia associated with type 2 diabetes mellitus Code(s): E11.69 - TYPE 2 DIABETES MELLITUS WITH OTHER SPECIFIED COMPLICATION; E78.5 - HYPERLIPIDEMIA, UNSPECIFIED (3) Proteinuria Code(s): R80.9 - PROTEINURIA, UNSPECIFIED (4) Sepsis Code(s): A41.9 - SEPSIS, UNSPECIFIED ORGANISM (5) Suspected 2019-nCoV infection Code(s): Z20.828 - CONTACT W AND EXPOSURE TO [facility] VIRAL COMMUNICABLE DISEASES Assessment/Plan Current Active Problems dmtype 2 /pancreatitis Acute pancreatitis (Acute) Hyperlipidemia associated with type 2 diabetes mellitus (Acute) Proteinuria (Acute) Sepsis (Acute) Suspected 2019-nCoV infection (Acute) Abnormal Lab Results 09/26/19 09/26/19 07:44 07:44 Creatinine 0.5 L Random Glucose 200 H Total Protein 6.2 L Albumin 2.8 L Triglycerides 849 H 862 H Cholesterol 325 H Total LDL Cholesterol 104 H HDL Cholesterol 22 L Laboratory Results - last 24 hr 09/25/19 09/26/19 09/26/19 22:21 06:04 07:44 WBC RBC Hgb Hct MCV MCH MCHC RDW Plt Count MPV Absolute Neuts (auto) Neutrophils % Lymphocytes % Monocytes % Eosinophils % Basophils % Nucleated RBC % Sodium 137 Potassium 3.8 Chloride 103 Carbon Dioxide 24 Anion Gap 11 BUN 10.0 Creatinine 0.5 L Est GFR (CKD-EPI)AfAm 163.87 Est GFR (CKD-EPI)NonAf 141.39 POC Glucometer 230 196 Random Glucose 200 H Calcium 8.7 Total Bilirubin 0.7 AST 35 ALT 57 Alkaline Phosphatase 91 Total Protein 6.2 L Albumin 2.8 L Triglycerides 849 H Cholesterol Total LDL Cholesterol HDL Cholesterol 08/09/26/19 09/26/19 07:44 07:44 11:09 WBC 5.5 RBC 4.54 Hgb 13.5 Hct 39.1 MCV 86.2 MCH 29.7 MCHC 34.5 RDW 13.3 Plt Count 200 MPV 7.7 Absolute Neuts (auto) 3.2 Neutrophils % 58.7 Lymphocytes % 30.0 Monocytes % 7.5 Eosinophils % 3.0 D Basophils % 0.8 Nucleated RBC % 0 Sodium Potassium Chloride Carbon Dioxide Anion Gap BUN Creatinine Est GFR (CKD-EPI)AfAm Est GFR (CKD-EPI)NonAf POC Glucometer 247 Random Glucose Calcium Total Bilirubin AST ALT Alkaline Phosphatase Total Protein Albumin Triglycerides 862 H Cholesterol 325 H Total LDL Cholesterol 104 H HDL Cholesterol 22 L 09/26/19 17:09 WBC RBC Hgb Hct MCV MCH MCHC RDW Plt Count MPV Absolute Neuts (auto) Neutrophils % Lymphocytes % Monocytes % Eosinophils % Basophils % Nucleated RBC % Sodium Potassium Chloride Carbon Dioxide Anion Gap BUN Creatinine Est GFR (CKD-EPI)AfAm Est GFR (CKD-EPI)NonAf POC Glucometer 190 Random Glucose Calcium Total Bilirubin AST ALT Alkaline Phosphatase Total Protein Albumin Triglycerides Cholesterol Total LDL Cholesterol HDL Cholesterol plan: bgm qachs novolog scale levemir 10units am diet and nutrition follow up [id number] daily
[2019-09-26 18:44] LABS: URINE APPEARANCE Clear; URINE BILIRUBIN Negative (NEGATIVE); URINE COLOR Yellow; URINE GLUCOSE (UA) 2+ (NEGATIVE); URINE KETONE 2+ (NEGATIVE); URINE LEUK ESTERASE Negative (NEGATIVE); URINE NITRITE Negative (NEGATIVE); URINE PROTEIN Negative (NEGATIVE)
--- NOTE | 2019-09-26 20:13 | PN ---
Teaching Attending Note Name of Resident: Indio Vigil ATTENDING PHYSICIAN STATEMENT I saw and evaluated the patient. I reviewed the resident's note and discussed the case with the resident. I agree with the resident's findings and plan as documented. SUBJECTIVE: Patient seen and examined at bedside, educated on T2DM diagnosis however patient refusing insulin therapy, due to hepatic/pancreatic injury risk w/ PO meds will intervene with Endocrine service for further education/intervention for insulin therapy for this patient's uncontrolled DM which is likely related to pancreatic injury. OBJECTIVE: Vital Signs Period Temp Pulse Resp BP Sys/[place] Pulse Ox Last 24 Hr 98.2 F-99.6 F 70-83 20-20 122-160/72-91 94-97 GENERAL: AAox3, NAD, OOB to chair HEENT NC/aT, no oral thrush, neck supple, MMM LUNGS: Breath sounds equal, clear to auscultation bilaterally. No wheezes, and no crackles. No accessory muscle use. HEART: Regular rate and rhythm, normal S1 and S2 without murmur, rub or gallop. ABDOMEN: No epigastric pain,BS+, Soft, not distended, no guarding, no rebound, no masses. No hepatomegaly or splenomegaly. MUSCULOSKELETAL: Normal range of motion at all joints. No bony deformities or tenderness. No CVA tenderness. UPPER EXTREMITIES: 2+ pulses, warm, well-perfused. No cyanosis. No clubbing. No peripheral edema. LOWER EXTREMITIES: 2+ pulses, warm, well-perfused. No calf tenderness. No peripheral edema. NEUROLOGICAL: Cranial nerves II-XII intact. Normal speech. Gait not observed. PSYCHIATRIC: Cooperative. Good eye contact. Appropriate mood and affect. SKIN: Warm, dry, normal turgor, no rashes or lesions noted, normal capillary refill. No LE ulcers. Vital Signs - 24 hr 09/25/19 09/26/19 09/26/19 23:00 06:00 09:00 Temperature 98.9 F 98.8 F Pulse Rate 67 58 L Respiratory 20 20 Rate Blood Pressure 132/84 137/76 O2 Sat by Pulse 96 98 97 Oximetry (%) 09/26/19 09/26/19 09/26/19 10:00 14:10 19:38 Temperature 98 F 97.8 F 98.5 F Pulse Rate 67 68 87 Respiratory 18 20 20 Rate Blood Pressure 146/86 138/84 150/79 O2 Sat by Pulse 98 100 Oximetry (%) Microbiology 09/24/19 07:00 Blood - Peripheral Venous Blood Culture - Preliminary NO GROWTH OBTAINED AFTER 48 HOURS, INCUBATION TO CONTINUE FOR 3 DAYS. 09/24/19 07:05 Blood - Peripheral Venous Blood Culture - Preliminary NO GROWTH OBTAINED AFTER 48 HOURS, INCUBATION TO CONTINUE FOR 3 DAYS. 09/24/19 11:15 Urine - Urine Clean Catch Urine Culture - Final NO GROWTH OBTAINED Laboratory Results - last 24 hr 09/25/19 09/26/19 09/26/19 22:21 06:04 07:44 WBC RBC Hgb Hct MCV MCH MCHC RDW Plt Count MPV Absolute Neuts (auto) Neutrophils % Lymphocytes % Monocytes % Eosinophils % Basophils % Nucleated RBC % Sodium 137 Potassium 3.8 Chloride 103 Carbon Dioxide 24 Anion Gap 11 BUN 10.0 Creatinine 0.5 L Est GFR (CKD-EPI)AfAm 163.87 Est GFR (CKD-EPI)NonAf 141.39 POC Glucometer 230 196 Random Glucose 200 H Calcium 8.7 Total Bilirubin 0.7 AST 35 ALT 57 Alkaline Phosphatase 91 Total Protein 6.2 L Albumin 2.8 L Triglycerides 849 H Cholesterol Total LDL Cholesterol HDL Cholesterol Urine Color Urine Appearance Urine pH Ur Specific [place] Urine Protein Urine Glucose (UA) Urine Ketones Urine Blood Urine Nitrite Urine Bilirubin Urine Urobilinogen Ur Leukocyte Esterase Ur Random Creatinine U Random Total Protein Protein/Creatinin Ratio 09/26/19 09/26/19 09/26/19 07:44 07:44 11:09 WBC 5.5 RBC 4.54 Hgb 13.5 Hct 39.1 MCV 86.2 MCH 29.7 MCHC 34.5 RDW 13.3 Plt Count 200 MPV 7.7 Absolute Neuts (auto) 3.2 Neutrophils % 58.7 Lymphocytes % 30.0 Monocytes % 7.5 Eosinophils % 3.0 D Basophils % 0.8 Nucleated RBC % 0 Sodium Potassium Chloride Carbon Dioxide Anion Gap BUN Creatinine Est GFR (CKD-EPI)AfAm Est GFR (CKD-EPI)NonAf POC Glucometer 247 Random Glucose Calcium Total Bilirubin AST ALT Alkaline Phosphatase Total Protein Albumin Triglycerides 862 H Cholesterol 325 H Total LDL Cholesterol 104 H HDL Cholesterol 22 L Urine Color Urine Appearance Urine pH Ur Specific [place] Urine Protein Urine Glucose (UA) Urine Ketones Urine Blood Urine Nitrite Urine Bilirubin Urine Urobilinogen Ur Leukocyte Esterase Ur Random Creatinine U Random Total Protein Protein/Creatinin Ratio 09/26/19 09/26/19 09/26/19 17:09 18:00 18:00 WBC RBC Hgb Hct MCV MCH MCHC RDW Plt Count MPV Absolute Neuts (auto) Neutrophils % Lymphocytes % Monocytes % Eosinophils % Basophils % Nucleated RBC % Sodium Potassium Chloride Carbon Dioxide Anion Gap BUN Creatinine Est GFR (CKD-EPI)AfAm Est GFR (CKD-EPI)NonAf POC Glucometer 190 Random Glucose Calcium Total Bilirubin AST ALT Alkaline Phosphatase Total Protein Albumin Triglycerides Cholesterol Total LDL Cholesterol HDL Cholesterol Urine Color Yellow Urine Appearance Clear Urine pH 6.0 Ur Specific [place] 1.015 Urine Protein Negative Urine Glucose (UA) 2+ H Urine Ketones 2+ H Urine Blood Negative Urine Nitrite Negative Urine Bilirubin Negative Urine Urobilinogen 1.0 Ur Leukocyte Esterase Negative Ur Random Creatinine 34.0 U Random Total Protein 15.4 H Protein/Creatinin Ratio 0.5 Home Medications Medication Instructions Recorded Aspirin [ASA -] 81 mg PO DAILY #30 tab.chew 09/26/19 Fenofibric Acid [Trilipix -] 135 mg PO DAILY #30 cap 09/26/19 Folic Acid - 1 mg PO DAILY #30 tablet 09/26/19 Glimepiride 2 mg PO BID #60 tablet 09/26/19 Lisinopril [Prinivil] 10 mg PO DAILY #30 tablet 09/26/19 Miscellaneous Medical Supply 1 each TP ASDIR #1 kit 09/26/19 [Glucometer Device] Miscellaneous Medical Supply 1 each TP ASDIR #1 box 09/26/19 [Glucometer Test Strips #100] Miscellaneous Medical Supply 1 each ASDIR #1 misc 09/26/19 [Outpatient Order] [place]-3 Acid Ethyl Esters [Lovaza 2 gm PO BID #60 cap 09/26/19 -] Sitagliptin Phosphate [Januvia] 100 mg PO DAILY #30 tablet 09/26/19 Thiamine HCl [Vitamin B1 -] 100 mg PO DAILY #30 tablet 09/26/19 Current Medications Generic Name Dose Route Start Last Admin Trade Name Freq PRN Reason Stop Dose Admin Acetaminophen 1,000 mg 09/24/19 05:30 Ofirmev Injection - IVPB Q6H PRN FEVER Aspirin 81 mg 09/27/19 10:00 Asa - PO DAILY ALYO Fenofibric Acid 135 mg 09/25/19 10:00 08/17/20 10:59 Trilipix - PO 135 mg DAILY LAYO Administration Folic Acid 1 mg 09/26/19 10:00 09/26/19 10:58 Folic Acid - PO 1 mg DAILY LAYO Administration Lactated Ringer's 1,000 mls @ 150 mls/hr 09/24/19 02:15 09/26/19 06:07 Lactated Ringers Solution IV 150 mls/hr ASDIR LAYO Administration Insulin Aspart 1 vial 09/24/19 16:30 09/26/19 17:45 Novolog Vial Sliding Scale - SQ 2 units ACHS LAYO Administration Protocol Insulin Detemir 7 units 09/25/19 22:00 09/26/19 10:58 Levemir Vial SQ 7 units BID LAYO Administration Lisinopril 10 mg 09/26/19 10:00 09/26/19 10:59 Prinivil PO 10 mg DAILY LAYO Administration Multivitamins/Minerals/Vitamin C 1 tab 09/26/19 10:00 09/26/19 10:59 Tab-A-Vit - PO 1 tab DAILY LAYO Administration Yoyqg-3-Cctx Ethyl Esters 2 gm 09/25/19 10:00 09/26/19 10:59 Lovaza - PO 2 gm BID LAYO Administration Thiamine HCl 100 mg 09/26/19 10:00 09/26/19 10:59 Vitamin B1 - PO 100 mg DAILY LAYO Administration ASSESSMENT AND PLAN: 33 M HTG induced pancreatitis Etoh dependence New onset T2DM HTN Obesity Plan: Levemir 10u qAM supplement with 5-8u Novolog TID premeal Endocrine evaluation Start Lisinopril for proteinuria cont. Trilipix/[place]-3 Counseled extensively on Etoh cessation DVT ppx: Heparin SC Will need SW intervention for DM supplies/glucometer/insulin etc.
[2019-09-27] MEDS: INSULIN SLIDING SCALE (NOVOLOG) 1 VIAL SQ SCH ×2 (06:06→12:50)
[2019-09-27] MEDS: FOLIC ACID 1 MG TABLET (FP) PO SCH (09:29)
[2019-09-27] MEDS: LISINOPRIL 10 MG TABLET (FP) PO SCH (09:29)
[2019-09-27] MEDS: FENOFIBRIC ACID 135 MG CAP PO SCH (09:29)
[2019-09-27] MEDS: OMEGA-3 ACID ETHYL ESTERS (FATTY-ACIDS) 1 GM CAPSULE (FP) PO SCH (09:30)
[2019-09-27] MEDS: THIAMINE HCL 100 MG TABLET (FP) PO SCH (09:30)
[2019-09-27] MEDS: INSULIN (LEVEMIR) 100 UNITS/ML UNITS SQ SCH (09:30)
[2019-09-27] MEDS: MULTIVITAMINS (DAILY MVI) TABLET (FP) PO SCH (09:30)
[2019-09-27] MEDS ORDERED: ASPIRIN 81 MG CHEWABLE TABLETS PO SCH (10:00)
--- NOTE | 2019-09-27 11:17 | PN ---
Progress Note, Physician History of Present Illness: stable no complaints improving - Current Medication List Current Medications: Active Medications Acetaminophen (Ofirmev Injection -) 1,000 mg IVPB Q6H PRN PRN Reason: FEVER Aspirin (Asa -) 81 mg PO DAILY [facility] Last Admin: 09/27/19 09:29 Dose: 81 mg Documented by: Fenofibric Acid (Trilipix -) 135 mg PO DAILY [facility] Last Admin: 09/27/19 09:29 Dose: 135 mg Documented by: Folic Acid (Folic Acid -) 1 mg PO DAILY [facility] Last Admin: 09/27/19 09:29 Dose: 1 mg Documented by: Lactated Ringer's (Lactated Ringers Solution) 1,000 mls @ 150 mls/hr IV ASDIR [facility] Last Admin: 09/26/19 06:07 Dose: 150 mls/hr Documented by: Insulin Aspart (Novolog Vial Sliding Scale -) 1 vial SQ ACHS [facility]; Protocol Last Admin: 09/27/19 06:06 Dose: 2 units Documented by: Insulin Detemir (Levemir Vial) 7 units SQ BID [facility] Last Admin: 09/27/19 09:30 Dose: 7 units Documented by: Lisinopril (Prinivil) 10 mg PO DAILY [facility] Last Admin: 09/27/19 09:29 Dose: 10 mg Documented by: Multivitamins/Minerals/Vitamin C (Tab-A-Vit -) 1 tab PO DAILY [facility] Last Admin: 09/27/19 09:30 Dose: 1 tab Documented by: Runur-0-Asmd Ethyl Esters (Lovaza -) 2 gm PO BID [facility] Last Admin: 09/27/19 09:30 Dose: 2 gm Documented by: Thiamine HCl (Vitamin B1 -) 100 mg PO DAILY [facility] Last Admin: 09/27/19 09:30 Dose: 100 mg Documented by: - Objective Vital Signs: Vital Signs Temperature 97.6 F 09/27/19 05:48 Pulse Rate 66 09/27/19 05:48 Respiratory Rate 18 09/27/19 05:48 Blood Pressure 134/73 09/27/19 05:48 O2 Sat by Pulse Oximetry (%) 98 09/27/19 05:48 Constitutional: Yes: No Distress, Calm Cardiovascular: Yes: S1, S2 Respiratory: Yes: Regular, CTA Bilaterally Gastrointestinal: Yes: Normal Bowel Sounds, Soft Musculoskeletal: Yes: WNL Extremities: Yes: WNL Neurological: Yes: Alert, Oriented Psychiatric: Yes: Alert, Oriented Labs: CBC, BMP 09/26/19 07:44 09/26/19 07:44 Assessment/Plan james List - Problems (1) Acute pancreatitis Code(s): K85.90 - ACUTE PANCREATITIS WITHOUT NECROSIS OR INFECTION, UNSP Qualifiers: Pancreatitis type: other Acute pancreatitis complication: no infection or necrosis Qualified Code(s): K85.80 - Other acute pancreatitis without necrosis or infection (2) Hyperlipidemia associated with type 2 diabetes mellitus Code(s): E11.69 - TYPE 2 DIABETES MELLITUS WITH OTHER SPECIFIED COMPLICATION; E78.5 - HYPERLIPIDEMIA, UNSPECIFIED (3) Sepsis Code(s): A41.9 - SEPSIS, UNSPECIFIED ORGANISM Assessment/Plan continue current mgmt continue monitoring gi on board rest as per the team
[2019-09-27 11:46] VITALS: BP 129/78; PULSE 70; TEMP 98
[2019-09-27] MEDS ORDERED: INSULIN (NOVOLOG) ASPART 100 UNITS/ML 10ML VIAL ONE (12:44)
--- NOTE | 2019-09-27 14:46 | PN ---
Progress Note, Physician History of Present Illness: Pt seen and examined at bedside. He is awake and alert. - Objective Vital Signs: Vital Signs Temperature 98 F 09/27/19 09:00 Pulse Rate 70 09/27/19 09:00 Respiratory Rate 18 09/27/19 09:00 Blood Pressure 129/78 09/27/19 09:00 O2 Sat by Pulse Oximetry (%) 98 09/27/19 09:00 Constitutional: Yes: Calm Eyes: Yes: Conjunctiva Clear HENT: Yes: Atraumatic Neck: Yes: Supple Cardiovascular: Yes: S1, S2 Respiratory: Yes: CTA Bilaterally Gastrointestinal: Yes: Soft Genitourinary: Yes: WNL Musculoskeletal: Yes: WNL Edema: No Neurological: Yes: Oriented Psychiatric: Yes: Oriented Labs: CBC, BMP 09/26/19 07:44 09/26/19 07:44 Problem List - Problems (1) Proteinuria Code(s): R80.9 - PROTEINURIA, UNSPECIFIED (2) Acute pancreatitis Code(s): K85.90 - ACUTE PANCREATITIS WITHOUT NECROSIS OR INFECTION, UNSP Qualifiers: Pancreatitis type: other Acute pancreatitis complication: no infection or necrosis Qualified Code(s): K85.80 - Other acute pancreatitis without necrosis or infection (3) Hyperlipidemia associated with type 2 diabetes mellitus Code(s): E11.69 - TYPE 2 DIABETES MELLITUS WITH OTHER SPECIFIED COMPLICATION; E78.5 - HYPERLIPIDEMIA, UNSPECIFIED Assessment/Plan Current Medications Generic Name Dose Route Start Last Admin Trade Name Freq PRN Reason Stop Dose Admin Acetaminophen 1,000 mg 09/24/19 05:30 Ofirmev Injection - IVPB Q6H PRN FEVER Fenofibric Acid 135 mg 09/25/19 10:00 09/26/19 10:59 Trilipix - PO 135 mg DAILY LAYO Administration Folic Acid 1 mg 09/26/19 10:00 09/26/19 10:58 Folic Acid - PO 1 mg DAILY LAYO Administration Lactated Ringer's 1,000 mls @ 150 mls/hr 09/24/19 02:15 09/26/19 06:07 Lactated Ringers Solution IV 150 mls/hr ASDIR LAYO Administration Insulin Aspart 1 vial 09/24/19 16:30 09/26/19 11:10 Novolog Vial Sliding Scale - SQ 4 units ACHS LAYO Administration Protocol Insulin Detemir 7 units 09/25/19 22:00 09/26/19 10:58 Levemir Vial SQ 7 units BID LAYO Administration Lisinopril 10 mg 09/26/19 10:00 09/26/19 10:59 Prinivil PO 10 mg DAILY LAYO Administration Multivitamins/Minerals/Vitamin C 1 tab 09/26/19 10:00 09/26/19 10:59 Tab-A-Vit - PO 1 tab DAILY LAYO Administration Fgftl-8-Avdr Ethyl Esters 2 gm 09/25/19 10:00 09/26/19 10:59 Lovaza - PO 2 gm BID LAYO Administration Thiamine HCl 100 mg 09/26/19 10:00 09/26/19 10:59 Vitamin B1 - PO 100 mg DAILY LAYO Administration Laboratory Tests 09/23/19 09/25/19 09/26/19 22:40 08:12 07:44 Sodium 137 Creatinine 0.5 L Hemoglobin A1c % 12.7 H Urine Protein 2+ H Urine Glucose (UA) 2+ Urine Ketones 4+ H Urine Blood 09/26/19 18:00 Sodium Creatinine Hemoglobin A1c % Urine Protein Negative Urine Glucose (UA) Urine Ketones Urine Blood Negative Impression 1. proteinuria 2. DM 3. pancreatitis 4. hypertlipidemai Plan - repeat ua neg for blood or protein - outpt follow up - cont lorie - monitor lytes - discussed importance of glucose control
--- NOTE | 2019-09-27 14:59 | PN ---
Teaching Attending Note Name of Resident: [place] Vigil ATTENDING PHYSICIAN STATEMENT I saw and evaluated the patient. I reviewed the resident's note and discussed the case with the resident. I agree with the resident's findings and plan as documented. SUBJECTIVE: OBJECTIVE: Last Vital Signs Temp Pulse Resp BP Pulse Ox 98 F 70 18 129/78 98 09/27/19 09:00 09/27/19 09:00 09/27/19 09:00 09/27/19 09:00 09/27/19 09:00 GENERAL: AAox3, NAD, OOB to chair HEENT NC/aT, no oral thrush, neck supple, MMM LUNGS: Breath sounds equal, clear to auscultation bilaterally. No wheezes, and no crackles. No accessory muscle use. HEART: Regular rate and rhythm, normal S1 and S2 without murmur, rub or gallop. ABDOMEN: No epigastric pain,BS+, Soft, not distended, no guarding, no rebound, no masses. No hepatomegaly or splenomegaly. MUSCULOSKELETAL: Normal range of motion at all joints. No bony deformities or tenderness. No CVA tenderness. UPPER EXTREMITIES: 2+ pulses, warm, well-perfused. No cyanosis. No clubbing. No peripheral edema. LOWER EXTREMITIES: 2+ pulses, warm, well-perfused. No calf tenderness. No peripheral edema. NEUROLOGICAL: Cranial nerves II-XII intact. Normal speech. Gait not observed. PSYCHIATRIC: Cooperative. Good eye contact. Appropriate mood and affect. SKIN: Warm, dry, normal turgor, no rashes or lesions noted, normal capillary refill. No LE ulcers. CBCD WBC 5.5 K/mm3 (4.0-10.0) 09/26/19 07:44 RBC 4.54 M/mm3 (4.00-5.60) 09/26/19 07:44 Hgb 13.5 GM/dL (11.7-16.9) 09/26/19 07:44 Hct 39.1 % (35.4-49) 09/26/19 07:44 MCV 86.2 fl (80-96) 09/26/19 07:44 MCHC 34.5 g/dl (32.0-35.9) 09/26/19 07:44 RDW 13.3 % (11.9-15.9) 09/26/19 07:44 Plt Count 200 K/MM3 (134-434) 09/26/19 07:44 MPV 7.7 fl (7.5-11.1) 09/26/19 07:44 CMP Sodium 137 mmol/L (136-145) 09/26/19 07:44 Potassium 3.8 mmol/L (3.5-5.1) 09/26/19 07:44 Chloride 103 mmol/L (98-107) 09/26/19 07:44 Carbon Dioxide 24 mmol/L (21-32) 09/26/19 07:44 Anion Gap 11 MMOL/L (8-16) 09/26/19 07:44 BUN 10.0 mg/dL (7-18) 09/26/19 07:44 Creatinine 0.5 mg/dL (0.55-1.3) L 09/26/19 07:44 Calcium 8.7 mg/dL (8.5-10.1) 09/26/19 07:44 Total Bilirubin 0.7 mg/dL (0.2-1) 09/26/19 07:44 AST 35 U/L (15-37) 09/26/19 07:44 ALT 57 U/L (13-61) 09/26/19 07:44 Alkaline Phosphatase 91 U/L (45-117) 09/26/19 07:44 Total Protein 6.2 g/dl (6.4-8.2) L 09/26/19 07:44 Albumin 2.8 g/dl (3.4-5.0) L 09/26/19 07:44 ASSESSMENT AND PLAN: 33 M # HTG induced pancreatitis Etoh dependence adviced abstinence tolerating diet cont. Trilipix/[place]-3 #New onset T2DM adjusted insulin regimen diabetic education lisinopril will need outpatient nephrology, ednocrine f/u diet and medication compliance HTN Obesity
== END 2019-09-27 14:22 | disposition home or self-care (01) | DRG 720 ==
LOC: FER 21:01 → J8W 09-24 04:42
PROVIDERS: ADMIT Internal Medicine; ATTEND Student in an Organized Health Care Education/Training Program
DX: A41.9 Sepsis, unspecified organism (principal); K85.90 Acute pancreatitis without necrosis or infection, unspecified; E11.65 Type 2 diabetes mellitus with hyperglycemia; Z68.33 Body mass index [BMI] 33.0-33.9, adult; E66.9 Obesity, unspecified; E78.5 Hyperlipidemia, unspecified; F10.20 Alcohol dependence, uncomplicated; E78.1 Pure hyperglyceridemia; R80.9 Proteinuria, unspecified; Z87.891 Personal history of nicotine dependence
CPT/HCPCS: 36415; 71045-TC-FY; 74176-TC; 76775-TC; 80048; 80053; 80061; 80074; 80307; 81003; 81015; 82043; 82150; 82565; 82570; 82962; 83036; 83605; 83690; 83721; 84156; 84443; 84478; 85025; 87040; 87086; 93005; 99285-25; J0131; U0003

== ENCOUNTER 2021-06-06 04:19 | Emergency (ER) | payer OTHER ==
[2021-06-06 04:28] VITALS: BMI 28.8
[2021-06-06] MEDS ORDERED: ACETAMINOPHEN 1000 MG/100 ML BAG IVPB ONE (04:43)
[2021-06-06] MEDS ORDERED: ACETAMINOPHEN INJECTION 100 ML IVPB ONE (04:54)
[2021-06-06 05:00] LABS: BASO % 0.3 % (0-2.0); EOS % 1.5 % (0-4.5); HEMOGLOBIN 15.2 GM/dL (11.7-16.9); LYMPH % 42.2 % (8-40); MCH 28.7 pg (25.7-33.7); MCHC 34.6 g/dl (32.0-35.9); MEAN PLT VOLUME 6.6 fl (7.5-11.1); MONO % 7.7 % (3.8-10.2); NEUT % 48.3 % (42.8-82.8); PLATELET COUNT 278 10^3/uL (134-434); RDW 13.5 % (11.9-15.9); WHITE BLOOD COUNT 7.3 K/mm3 (4.0-10.0)
[2021-06-06 05:18] LABS: INR 1.04 (0.83-1.09)
[2021-06-06 05:21] LABS: ACTIVATED PTT 33.1 SECONDS (25.2-36.5); CALCIUM 8.8 mg/dL (8.5-10.1)
[2021-06-06 05:23] LABS: ALBUMIN 4.3 g/dl (3.4-5.0); BLOOD UREA NITROGEN 11.2 mg/dL (7-18)
[2021-06-06 05:25] LABS: CREATININE 0.8 mg/dL (0.55-1.3)
[2021-06-06 05:26] LABS: BILIRUBIN,TOTAL 0.2 mg/dL (0.2-1); TOT PROT 7.8 g/dl (6.4-8.2)
[2021-06-06] MEDS ORDERED: LACTATED RINGERS SOLUTION 1000 ML INFUS.BAG IV ONE (06:35)
[2021-06-06 12:06] VITALS: BP 122/70; PULSE 74; TEMP 98
== END 2021-06-06 12:16 | disposition home or self-care (01) ==
LOC: JER 04:19
PROC: 3E033GC Introduction of Other Therapeutic Substance into Peripheral Vein, Percutaneous Approach (ICD-10-PCS; principal; 2021-06-06)
DX: R07.9 Chest pain, unspecified (principal); V49.9XXA Car occupant (driver) (passenger) injured in unspecified traffic accident, initial encounter
CPT/HCPCS: 36415; 70450-TC; 71260-TC; 72125-TC; 74177-TC; 80053; 80307; 82550; 82553; 84484; 85025; 85610; 85730; 93005; 93010; 99285-25; Q9967